=== PATIENT | female | born 1980 | race Caucasian/White ===

== ENCOUNTER 2017-10-15 11:44 | Observation (INO) | payer SELFPAY ==
[2017-10-15] MEDS ORDERED: Bupivacaine 0.25% 10 ML SDV ONE (12:00)
--- NOTE | 2017-10-15 12:00 | PCM.LDHP ---
L&D History of Present Illness - General Date of Service: 10/15/17 Admit Problem/Dx: Admission Diagnosis/Problem Admission Diagnosis/Problem Source of Information: Patient History Limitations: Reports: No Limitations - History of Present Illness Introduction:: 37 y/o SUM[place] 11/02/17 EGA 37w3d with H/O AMA, and two vessel cord, presented to [facility] for weekly BPP. No movement x12 hrs and USG revealed no heart rate, intrauterine demise. Sent to L&D for induction. Cervix closed, long, soft, posterior, floating presenting part confirmed by USG as cephalic.O positive GBS negative. Counseled on alternatives and patient and and I agree with induction. Improves with: Reports: None Worsens with: Reports: None Associated Symptoms: Reports: N - Related Data Allergies/Adverse Reactions: Allergies Allergy/AdvReac Type Severity Reaction Status Date / Time amoxicillin [Amoxicillin] Allergy Hives Verified 07/23/16 02:26 Penicillins Allergy Hives Verified 07/23/16 02:26 Home Medications: Home Meds Diclofenac Sodium [Voltaren] 75 mg PO BIDM #20 tab.cr 12/21/13 [Rx] Iron,Carbonyl/Vit C/Vit B12/Fa [Iron 100 Plus Tablet] 1 each PO 12/21/13 [ History] Ranitidine HCl [Zantac 75] 12/21/13 [History] traMADol [Ultram] 50 mg PO Q6H PRN #20 tab 12/21/13 [Rx] Acetaminophen [Tylenol] 650 mg PO Q6H PRN #0 tablet 07/28/16 [Rx] Benzocaine/Menthol [Dermoplast Pain Relief [place]] 1 spray TOP ASDIRECTED PRN #0 canister 07/28/16 [Rx] Ibuprofen [IJD: Ibuprofen] 200 - 600 mg PO Q6H PRN #0 tablet 07/28/16 [Rx] Witch Yolanda [Tucks] 1 pad TOP ASDIRECTED PRN #0 pad 07/28/16 [Rx] 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: - Past Surgical History Other Musculoskeletal Surgeries/Procedures:: "Had surgery on a few thumbs and ankles" Social & Family History - Family History Family Medical History: Noncontributory - Tobacco Use Smoking Status *Q: Current Every Day Smoker Years of Tobacco use: 20 Packs/Tins Daily: 1 Used Tobacco, but Quit: No - Caffeine Use Caffeine Use: Reports: Energy Drinks Other Caffeine Use: at least one daily - Alcohol Use Days Per Week of Alcohol Use: 0 - Recreational Drug Use Recreational Drug Use: No H&P Review of Systems - Review of Systems: Review Of Systems: See Below General: Reports: No Symptoms HEENT: Reports: No Symptoms Pulmonary: Reports: No Symptoms Cardiovascular: Reports: No Symptoms Gastrointestinal: Reports: No Symptoms Genitourinary: Reports: No Symptoms Musculoskeletal: Reports: No Symptoms Skin: Reports: No Symptoms Psychiatric: Reports: No Symptoms Neurological: Reports: No Symptoms Hematologic/Lymphatic: Reports: No Symptoms Immunologic: Reports: No Symptoms L&D Exam - Exam Exam: See Below - Vital Signs Weight: 104 lb 6.4 oz - OB Specific Fundal Height In cm: 37 Heart Tones per Min: 0 - Otto Score Otto Score Cervix Position: Posterior Otto Score Consistency: Soft Otto Score Effacement: 0-30% Otto Score Dilation: Closed Otto Score 's Station: -3 Otto Score Total: 2 - Exam General: Alert, Oriented HEENT: Conjunctiva Clear, Posterior Pharynx Clear, PERRLA Neck: Supple, Trachea Midline Lungs: Clear to Auscultation, Normal Respiratory Effort Cardiovascular: Regular Rate, Regular Rhythm GI/Abdominal Exam: Normal Bowel Sounds, Soft, Non-Tender Genitourinary: Normal external exam, Normal bimanual exam, Normal speculum exam Extremities: Normal Inspection, Normal Range of Motion, Non-Tender, No Pedal Edema, Normal Capillary Refill Skin: Warm, Dry, Intact Neurological: Reflexes Equal Bilateral Psychiatric: Alert, Normal Affect, Normal Mood - Problem List (1) 37 weeks gestation of SNOMED Code(s): 72027711 ICD Code: Z3A.37 - 37 WEEKS GESTATION OF Status: Acute Current Visit: Yes (2) demise SNOMED Code(s): 729769444 ICD Code: [id number] - Status: Acute Current Visit: Yes Problem List Initiated/Reviewed/Updated: No Assessment/Plan Comment:: Induction of labor for demise AMA 2 vessel cord IUFD Confirmed no heart activity at bedside by USG. Cytotec 25 mcg placed at cervix at 1213 hrs.
[2017-10-15] MEDS ORDERED: Misoprostol 25 MCG (1/4 of 100 MCG) Tab ONE (12:10)
[2017-10-15] MEDS ORDERED: Sodium Chloride 0.9% 10 ML Syringe FLUSH PRN (12:20)
[2017-10-15] MEDS ORDERED: Nalbuphine 20 MG/1 ML Amp IVPUSH PRN (12:20)
[2017-10-15] MEDS ORDERED: Ondansetron 4 MG/2 ML SDV IVPUSH PRN (12:20)
[2017-10-15] MEDS: Misoprostol 25 MCG (1/4 of 100 MCG) Tab VAG SCH ×3 (12:30→18:33)
[2017-10-15] MEDS ORDERED: Lactated Ringers 1,000 ML IV SCH (12:30)
--- NOTE | 2017-10-15 16:15 | PCM.SN ---
- Free Text/Narrative Note: Some increased cramping after second Cytotec, will plan 5 total unless condition of cervix changes and start pitocin at 0330 in AM.
[2017-10-15] MEDS ORDERED: diphenhydrAMINE 50 MG/ML SDV IVPUSH PRN (19:54)
[2017-10-15] MEDS ORDERED: ePHEDrine 50 MG/ML SDV IVPUSH PRN (19:54)
[2017-10-15] MEDS ORDERED: fentaNYL 100 MCG/2 ML SDV EPIDUR PRN (19:54)
[2017-10-15] MEDS ORDERED: fentaNYL/Bupivacaine in NS PF 2.5 MCG/ML-0.1% 50 ML Syringe EPIDUR SCH (20:00)
[2017-10-15] MEDS ORDERED: Bupivacaine/fentaNYL/NS 100 ML Bag EPIDUR SCH (20:30)
[2017-10-15 20:49] VITALS: BP 139/95
--- NOTE | 2017-10-15 20:49 | PCM.PREANE ---
Preanesthetic Assessment - Anesthesia/Transfusion/Family Hx Anesthesia History: Prior Anesthesia Reaction Type of Anesthesia Reaction: Excessive Nausea/Vomiting Family History of Anesthesia Reaction: No Transfusion History: No Prior Transfusion(s) - Review of Systems General: No Symptoms Pulmonary: No Symptoms Cardiovascular: No Symptoms Gastrointestinal: No Symptoms Neurological: No Symptoms Other: Reports: Depression, Anxiety - Physical Assessment Pulse: 80 O2 Sat by Pulse Oximetry: 97 Respiratory Rate: 20 Blood Pressure: 139/95 Vital Signs: Last Vital Signs Temp 98.4 F 10/15/17 12:20 Pulse 76 10/15/17 12:20 Resp 20 10/15/17 12:20 BP 104/64 10/15/17 12:20 Pulse Ox Height: 5 ft Weight: 47.355 kg ASA Class: 2 Mental Status: Alert & Oriented x3 Airway Class: Mallampati = 1 Dentition: Reports: Normal Dentition Thyro-Mental Finger Breadths: 3 Mouth Opening Finger Breadths: 3 ROM/Head Extension: Full Lungs: Clear to Auscultation, Normal Respiratory Effort Cardiovascular: Regular Rate, Regular Rhythm - Lab Values: Laboratory Last Values WBC 12.07 K/mm3 (3.98-10.04) H 10/15/17 00:40 RBC 5.10 M/mm3 (3.98-5.22) 10/15/17 00:40 Hgb 16.5 gm/L (11.2-15.7) H 10/15/17 00:40 Hct 48.0 % (34.1-44.9) H 10/15/17 00:40 MCV 94.1 fl (79.4-94.8) 10/15/17 00:40 MCH 32.4 pg (25.6-32.2) H 10/15/17 00:40 MCHC 34.4 g/dl (32.2-35.5) 10/15/17 00:40 RDW Std Deviation 45.8 fL (36.4-46.3) 10/15/17 00:40 Plt Count 172 K/mm3 (182-369) L 10/15/17 00:40 MPV 11.0 fl (9.4-12.3) 10/15/17 00:40 Blood Type O POSITIVE 10/15/17 12:40 Gel Antibody Screen Negative 10/15/17 12:40 - Allergies Allergies/Adverse Reactions: Allergies Allergy/AdvReac Type Severity Reaction Status Date / Time amoxicillin [Amoxicillin] Allergy Hives Verified 07/23/16 02:26 Penicillins Allergy Hives Verified 07/23/16 02:26 - Blood Blood Available: No - Acknowledgements Anesthesia Type Planned: Epidural Pt an Appropriate Candidate for the Planned Anesthesia: Yes Alternatives and Risks of Anesthesia Discussed w Pt/Guardian: Yes Pt/Guardian Understands and Agrees with Anesthesia Plan: Yes PreAnesthesia Questionnaire Cardiovascular History: Reports: None Gastrointestinal History: Reports: GERD 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 - Past Surgical History Other Musculoskeletal Surgeries/Procedures:: "Had surgery on a few thumbs and ankles" - SUBSTANCE USE Smoking Status *Q: Current Every Day Smoker Tobacco Use Within Last Twelve Months: Cigarettes Second Hand Smoke Exposure: Yes Days Per Week of Alcohol Use: 0 Recreational Drug Use History: No - HOME MEDS Home Medications: Home Meds Vit #108/Iron/FA [ One Tablet] 1 tab PO DAILY 10/15/17 [History ] - CURRENT (IN HOUSE) MEDS Current Meds: Current Medications Diphenhydramine HCl (Benadryl) 25 mg IVPUSH Q6H PRN PRN Reason: pruritis Ephedrine Sulfate (Ephedrine Sulfate) 5 mg IVPUSH ASDIRECTED PRN PRN Reason: Hypotension Fentanyl (Sublimaze) 100 mcg EPIDUR Q3H PRN PRN Reason: Pain Fentanyl/Bupivacaine HCl (Fentanyl/Bupivacaine/Ns 2.5 Mcg-0.1% 50 Ml) 50 ml EPIDUR ASDIRECTED FELA Fentanyl/Bupivacaine HCl (Fentanyl/Bupivacaine/Ns 2 Mcg-0.125% 100 Ml) 100 ml EPIDUR ASDIRECTED FELA Lactated Ringer's (Ringers, Lactated) 1,000 mls @ 100 mls/hr IV ASDIRECTED FELA Last Admin: 10/15/17 19:03 Dose: 100 mls/hr Oxytocin 20 unit/ Lactated (Ringer's) 1,002 mls @ 6.01 mls/hr IV TITRATE FELA; Protocol Oxytocin 20 unit/ Lactated (Ringer's) 1,002 mls @ 500 mls/hr IV ASDIRECTED FELA Misoprostol (Cytotec) 25 mcg PO Q3H [facility] Stop: 10/16/17 00:31 Nalbuphine HCl (Nubain) 10 mg IVPUSH Q2H PRN PRN Reason: Pain (moderate 4-6) Last Admin: 10/15/17 19:55 Dose: 10 mg Ondansetron HCl (Zofran) 4 mg IVPUSH Q4H PRN PRN Reason: Nausea/Vomiting Sodium Chloride (Saline Flush) 10 ml FLUSH ASDIRECTED PRN PRN Reason: Keep Vein Open Discontinued Medications Misoprostol (Cytotec) Confirm Administered Dose 25 mcg .ROUTE .[facility] Stop: 10/15/17 12:11 Last Admin: 10/15/17 12:14 Dose: 25 mcg Misoprostol (Cytotec) 25 mcg VAG Q3H [facility] Stop: 10/15/17 18:31 Last Admin: 10/15/17 18:33 Dose: 25 mcg
[2017-10-15] MEDS ORDERED: Misoprostol 200 MCG Tab PO SCH (21:30)
--- NOTE | 2017-10-15 23:06 | PCM.DEL ---
L & D Note - General Info Date of Service: 10/15/17 Mother's Due Date: 11/02/17 - Delivery Note Labor: Augmented by Oxytocin Cervical Ripening Method: Misoprostil Delivery Outcome: Stillbirth (223810/15/2017 LUDA IUFD (Stillbirth) 0 at delivery because of IUFD, no nuchal cord or cord entanglement weight 2250 gm/4#15 oz) Infant Delivery Method: Spontaneous Vaginal Delivery-Single Infant Delivery Mode: Spontaneous Presentation: Right Occiput Anterior (LUDA) Nuchal Cord: None Prep: Povidone-Iodine (Betadine Anesthesia Type: Epidural Episiotomy Type: None Laceration: 1st Degree Suture type: Chromic, Other (monocryl 3-0 x1) Suture size: 3-0 Placenta: Intact, Spontaneous (224110/15/2017 intact eccentric cord insertion, no evidence of abruption) Cord: 2 Vessels Estimated Blood Loss: 250 Provider: Obi Contreras Score 1 min: 0 (IUFD prior to labor) - Patient Data Vitals - Most Recent: Last Vital Signs Temp 98.4 F 10/15/17 12:20 Pulse 80 10/15/17 20:49 Resp 20 10/15/17 20:51 BP 139/95 H 10/15/17 20:49 Pulse Ox 97 10/15/17 20:49 Weight - Most Recent: 104 lb 6.4 oz I&O - Last 24 Hours: Intake & Output 10/15/17 10/15/17 10/15/17 06:59 14:59 22:59 Intake Total 0 Balance 0 Lab Results Last 24 Hours: Laboratory Results - last 24 hr 10/15/17 10/15/17 Range/Units 00:40 12:40 WBC 12.07 H (3.98-10.04) K/mm3 RBC 5.10 (3.98-5.22) M/mm3 Hgb 16.5 H (11.2-15.7) gm/L Hct 48.0 H (34.1-44.9) % MCV 94.1 (79.4-94.8) fl MCH 32.4 H (25.6-32.2) pg MCHC 34.4 (32.2-35.5) g/dl RDW Std Deviation 45.8 (36.4-46.3) fL Plt Count 172 L (182-369) K/mm3 MPV 11.0 (9.4-12.3) fl Blood Type O POSITIVE Gel Antibody Screen Negative Med Orders - Current: Current Medications Diphenhydramine HCl (Benadryl) 25 mg IVPUSH Q6H PRN PRN Reason: pruritis Ephedrine Sulfate (Ephedrine Sulfate) 5 mg IVPUSH ASDIRECTED PRN PRN Reason: Hypotension Fentanyl (Sublimaze) 100 mcg EPIDUR Q3H PRN PRN Reason: Pain Last Admin: 10/15/17 20:50 Dose: 100 mcg Fentanyl/Bupivacaine HCl (Fentanyl/Bupivacaine/Ns 2.5 Mcg-0.1% 50 Ml) 50 ml EPIDUR ASDIRECTED FELA Fentanyl/Bupivacaine HCl (Fentanyl/Bupivacaine/Ns 2 Mcg-0.125% 100 Ml) 100 ml EPIDUR ASDIRECTED FELA Last Admin: 10/15/17 20:50 Dose: 100 ml Lactated Ringer's (Ringers, Lactated) 1,000 mls @ 100 mls/hr IV ASDIRECTED FELA Last Admin: 10/15/17 19:03 Dose: 100 mls/hr Oxytocin 20 unit/ Lactated (Ringer's) 1,002 mls @ 6.01 mls/hr IV TITRATE FELA; Protocol Oxytocin 20 unit/ Lactated (Ringer's) 1,002 mls @ 500 mls/hr IV ASDIRECTED FELA Misoprostol (Cytotec) 25 mcg PO Q3H [facility] Stop: 10/16/17 00:31 Nalbuphine HCl (Nubain) 10 mg IVPUSH Q2H PRN PRN Reason: Pain (moderate 4-6) Last Admin: 10/15/17 19:55 Dose: 10 mg Ondansetron HCl (Zofran) 4 mg IVPUSH Q4H PRN PRN Reason: Nausea/Vomiting Sodium Chloride (Saline Flush) 10 ml FLUSH ASDIRECTED PRN PRN Reason: Keep Vein Open Discontinued Medications Misoprostol (Cytotec) Confirm Administered Dose 25 mcg .ROUTE .[facility] Stop: 10/15/17 12:11 Last Admin: 10/15/17 12:14 Dose: 25 mcg Misoprostol (Cytotec) 25 mcg VAG Q3H [facility] Stop: 10/15/17 18:31 Last Admin: 10/15/17 18:33 Dose: 25 mcg - Problem List & Annotations (1) 37 weeks gestation of SNOMED Code(s): 41948306 Code(s): Z3A.37 - 37 WEEKS GESTATION OF Status: Acute Current Visit: Yes (2) demise SNOMED Code(s): 233285295 Code(s): EDY1485 - Status: Acute Current Visit: Yes (3) Two vessel umbilical cord, delivered SNOMED Code(s): 499199905 Code(s): O69.89X0 - LABOR AND DELIVERY COMPLICATED BY OTH CORD COMP, UNSP Status: Acute Current Visit: Yes - Problem List Review Problem List Initiated/Reviewed/Updated: No - My Orders Last 24 Hours: My Active Orders 10/15/17 12:20 Patient Status [ADT] Routine Activity as Tolerated [RC] PFP Communication Order [RC] ASDIRECTED Notify Provider [RC] PFP Notify Provider [RC] PRN Vital Signs [RC] PER UNIT ROUTINE Nalbuphine [Nubain] 10 mg IVPUSH Q2H PRN Ondansetron [Zofran] 4 mg IVPUSH Q4H PRN Sodium Chloride 0.9% [Saline Flush] 10 ml FLUSH ASDIRECTED PRN Peripheral IV Insertion Adult [OM.PC] Routine Resuscitation Status Routine 10/15/17 12:21 Peripheral IV Care [RC] . DIRECTED 10/15/17 12:30 Lactated Ringers [Ringers, Lactated] 1,000 ml IV ASDIRECTED Oxytocin [Pitocin] 20 unit Lactated Ringers [Ringers, Lactated] 1,000 ml IV ASDIRECTED Oxytocin [Pitocin] 20 unit Lactated Ringers [Ringers, Lactated] 1,000 ml IV TITRATE 10/15/17 14:11 Communication Order [RC] ASDIRECTED 10/15/17 16:17 Communication Order [RC] ASDIRECTED 10/15/17 21:30 Misoprostol [Cytotec] 25 mcg PO Q3H 10/15/17 Lunch Regular Diet [DIET] - Plan Plan:: Induction of labor for demise AMA 2 vessel cord IUFD Confirmed no heart activity at bedside by USG. Cytotec 25 mcg placed at cervix at 1213 hrs.
[2017-10-16] MEDS ORDERED: Benzocaine/Menthol 20%-0.5% Spray 56 GM Canister TOP PRN (00:24)
[2017-10-16] MEDS ORDERED: Docusate Sodium 100 MG Cap PO PRN (00:24)
[2017-10-16] MEDS ORDERED: Acetaminophen 325 MG Tab PO PRN (00:24)
[2017-10-16] MEDS ORDERED: Ibuprofen 600 MG Tab PO PRN (00:24)
[2017-10-16] MEDS ORDERED: Witch Hazel Medicated Pads 100/Jar TOP PRN (00:24)
[2017-10-16] MEDS ORDERED: hydrOXYzine HCl 10 MG Tab PO SCH ×2 (01:12→21:00)
[2017-10-16] MEDS ORDERED: hydrOXYzine HCl 25 MG Tab PO SCH (01:30)
--- NOTE | 2017-10-16 07:40 | PCM48HPAN ---
Post Anesthesia Note - EVALUATION WITHIN 48HRS OF ANESTHETIC Vital Signs in Normal Range: Yes Patient Participated in Evaluation: No (from RN) Respiratory Function Stable: Yes Airway Patent: Yes Cardiovascular Function Stable: Yes Hydration Status Stable: Yes Pain Control Satisfactory: Yes Nausea and Vomiting Control Satisfactory: Yes Mental Status Recovered: Yes Pulse Rate: 80 Resp Rate: 20 Blood Pressure: 139/95 - COMMENTS/OBSERVATIONS Free Text/Narrative:: no anesthesia complications noted
--- NOTE | 2017-10-16 08:42 | PCM.DCSUM1 ---
Discharge Summary - Hospital Course Free Text/Narrative:: [facility] LIVE L/D Delivery Note Patient Name: NAE PALACIOS Date of : 76 Patient Status: Observation Attending Provider: Obi Contreras Date: 10/15/17 22:59 Initialization Date: 10/15/17 22:59 L & D Note - General Info Date of Service: 10/15/17 Mother's Due Date: 11/02/17 - Delivery Note Labor: Augmented by Oxytocin Cervical Ripening Method: Misoprostil Delivery Outcome: Stillbirth (223810/15/2017 LUDA IUFD (Stillbirth) 0 at delivery because of IUFD, no nuchal cord or cord entanglement weight 2250 gm/4#15 oz) Infant Delivery Method: Spontaneous Vaginal Delivery-Single Delivery Mode: Spontaneous Presentation: Right Occiput Anterior (LUDA) Nuchal Cord: None Prep: Povidone-Iodine (Betadine Anesthesia Type: Epidural Episiotomy Type: None Laceration: 1st Degree Suture type: Chromic, Other (monocryl 3-0 x1) Suture size: 3-0 Placenta: Intact, Spontaneous (224110/15/2017 intact eccentric cord insertion, no evidence of abruption) Cord: 2 Vessels Estimated Blood Loss: 250 Provider: Obi Contreras Score 1 min: 0 (IUFD prior to labor) - Patient Data Vitals - Most Recent: Last Vital Signs Temp 98.4 F 10/15/17 12:20 Pulse 80 10/15/17 20:49 Resp 20 10/15/17 20:51 BP 139/95 H 10/15/17 20:49 Pulse Ox 97 10/15/17 20:49 Weight - Most Recent: 104 lb 6.4 oz I&O - Last 24 Hours: Intake & Output 10/15/17 10/15/17 10/15/17 06:59 14:59 22:59 Intake Total 0 Balance 0 Lab Results Last 24 Hours: Laboratory Results - last 24 hr 10/15/17 10/15/17 Range/Units 00:40 12:40 WBC 12.07 H (3.98-10.04) K/mm3 RBC 5.10 (3.98-5.22) M/mm3 Hgb 16.5 H (11.2-15.7) gm/L Hct 48.0 H (34.1-44.9) % MCV 94.1 (79.4-94.8) fl MCH 32.4 H (25.6-32.2) pg MCHC 34.4 (32.2-35.5) g/dl RDW Std Deviation 45.8 (36.4-46.3) fL Plt Count 172 L (182-369) K/mm3 MPV 11.0 (9.4-12.3) fl Blood Type O POSITIVE Gel Antibody Screen Negative Med Orders - Current: Current Medications Diphenhydramine HCl (Benadryl) 25 mg IVPUSH Q6H PRN PRN Reason: pruritis Ephedrine Sulfate (Ephedrine Sulfate) 5 mg IVPUSH ASDIRECTED PRN PRN Reason: Hypotension Fentanyl (Sublimaze) 100 mcg EPIDUR Q3H PRN PRN Reason: Pain Last Admin: 10/15/17 20:50 Dose: 100 mcg Fentanyl/Bupivacaine HCl (Fentanyl/Bupivacaine/Ns 2.5 Mcg-0.1% 50 Ml) 50 ml EPIDUR ASDIRECTED FELA Fentanyl/Bupivacaine HCl (Fentanyl/Bupivacaine/Ns 2 Mcg-0.125% 100 Ml) 100 ml EPIDUR ASDIRECTED FELA Last Admin: 10/15/17 20:50 Dose: 100 ml Lactated Ringer's (Ringers, Lactated) 1,000 mls @ 100 mls/hr IV ASDIRECTED FELA Last Admin: 10/15/17 19:03 Dose: 100 mls/hr Oxytocin 20 unit/ Lactated (Ringer's) 1,002 mls @ 6.01 mls/hr IV TITRATE FELA; Protocol Oxytocin 20 unit/ Lactated (Ringer's) 1,002 mls @ 500 mls/hr IV ASDIRECTED ON LICENSE OF [facility] Misoprostol (Cytotec) 25 mcg PO Q3H FELA Stop: 10/16/17 00:31 Nalbuphine HCl (Nubain) 10 mg IVPUSH Q2H PRN PRN Reason: Pain (moderate 4-6) Last Admin: 10/15/17 19:55 Dose: 10 mg Ondansetron HCl (Zofran) 4 mg IVPUSH Q4H PRN PRN Reason: Nausea/Vomiting Sodium Chloride (Saline Flush) 10 ml FLUSH ASDIRECTED PRN PRN Reason: Keep Vein Open Discontinued Medications Misoprostol (Cytotec) Confirm Administered Dose 25 mcg .ROUTE .STK-MED ONE Stop: 10/15/17 12:11 Last Admin: 10/15/17 12:14 Dose: 25 mcg Misoprostol (Cytotec) 25 mcg VAG Q3H FELA Stop: 10/15/17 18:31 Last Admin: 10/15/17 18:33 Dose: 25 mcg - Problem List & Annotations (1) 37 weeks gestation of SNOMED Code(s): 68774866 Code(s): Z3A.37 - 37 WEEKS GESTATION OF Status: Acute Current Visit: Yes (2) demise SNOMED Code(s): 962778170 Code(s): UFM9626 - Status: Acute Current Visit: Yes (3) Two vessel umbilical cord, delivered SNOMED Code(s): 235879271 Code(s): O69.89X0 - LABOR AND DELIVERY COMPLICATED BY OTH CORD COMP, UNSP Status: Acute Current Visit: Yes - Problem List Review Problem List Initiated/Reviewed/Updated: No - My Orders Last 24 Hours: My Active Orders 10/15/17 12:20 Patient Status [ADT] Routine Activity as Tolerated [RC] PFP Communication Order [RC] ASDIRECTED Notify Provider [RC] PFP Notify Provider [RC] PRN Vital Signs [RC] PER UNIT ROUTINE Nalbuphine [Nubain] 10 mg IVPUSH Q2H PRN Ondansetron [Zofran] 4 mg IVPUSH Q4H PRN Sodium Chloride 0.9% [Saline Flush] 10 ml FLUSH ASDIRECTED PRN Peripheral IV Insertion Adult [OM.PC] Routine Resuscitation Status Routine 10/15/17 12:21 Peripheral IV Care [RC] . DIRECTED 10/15/17 12:30 Lactated Ringers [Ringers, Lactated] 1,000 ml IV ASDIRECTED Oxytocin [Pitocin] 20 unit Lactated Ringers [Ringers, Lactated] 1,000 ml IV ASDIRECTED Oxytocin [Pitocin] 20 unit Lactated Ringers [Ringers, Lactated] 1,000 ml IV TITRATE 10/15/17 14:11 Communication Order [RC] ASDIRECTED 10/15/17 16:17 Communication Order [RC] ASDIRECTED 10/15/17 21:30 Misoprostol [Cytotec] 25 mcg PO Q3H 10/15/17 Lunch Regular Diet [DIET] - Plan Plan:: Induction of labor for demise AMA 2 vessel cord IUFD Confirmed no heart activity at bedside by [facility]. Cytotec 25 mcg placed at cervix at 1213 hrs. HPI Initial Comments: [facility] LIVE L/D Delivery Note Patient Name: NAE PALACIOS Date of : 76 Patient Status: Observation Attending Provider: Obi Contreras Date: 10/15/17 22:59 Initialization Date: 10/15/17 22:59 L & D Note - General Info Date of Service: 10/15/17 Mother's Due Date: 11/02/17 - Delivery Note Labor: Augmented by Oxytocin Cervical Ripening Method: Misoprostil Delivery Outcome: Stillbirth (223810/15/2017 LUDA IUFD (Stillbirth) 0 at delivery because of IUFD, no nuchal cord or cord entanglement weight 2250 gm/4#15 oz) Delivery Method: Spontaneous Vaginal Delivery-Single Delivery Mode: Spontaneous Presentation: Right Occiput Anterior (LUDA) Nuchal Cord: None Prep: Povidone-Iodine (Betadine Anesthesia Type: Epidural Episiotomy Type: None Laceration: 1st Degree Suture type: Chromic, Other (monocryl 3-0 x1) Suture size: 3-0 Placenta: Intact, Spontaneous (224110/15/2017 intact eccentric cord insertion, no evidence of abruption) Cord: 2 Vessels Estimated Blood Loss: 250 Provider: Obi Contreras Score 1 min: 0 (IUFD prior to labor) - Patient Data Vitals - Most Recent: Last Vital Signs Temp 98.4 F 10/15/17 12:20 Pulse 80 10/15/17 20:49 Resp 20 10/15/17 20:51 BP 139/95 H 10/15/17 20:49 Pulse Ox 97 10/15/17 20:49 Weight - Most Recent: 104 lb 6.4 oz I&O - Last 24 Hours: Intake & Output 10/15/17 10/15/17 10/15/17 06:59 14:59 22:59 Intake Total 0 Balance 0 Lab Results Last 24 Hours: Laboratory Results - last 24 hr 10/15/17 10/15/17 Range/Units 00:40 12:40 WBC 12.07 H (3.98-10.04) K/mm3 RBC 5.10 (3.98-5.22) M/mm3 Hgb 16.5 H (11.2-15.7) gm/L Hct 48.0 H (34.1-44.9) % MCV 94.1 (79.4-94.8) fl MCH 32.4 H (25.6-32.2) pg MCHC 34.4 (32.2-35.5) g/dl RDW Std Deviation 45.8 (36.4-46.3) fL Plt Count 172 L (182-369) K/mm3 MPV 11.0 (9.4-12.3) fl Blood Type O POSITIVE Gel Antibody Screen Negative Med Orders - Current: Current Medications Diphenhydramine HCl (Benadryl) 25 mg IVPUSH Q6H PRN PRN Reason: pruritis Ephedrine Sulfate (Ephedrine Sulfate) 5 mg IVPUSH ASDIRECTED PRN PRN Reason: Hypotension Fentanyl (Sublimaze) 100 mcg EPIDUR Q3H PRN PRN Reason: Pain Last Admin: 10/15/17 20:50 Dose: 100 mcg Fentanyl/Bupivacaine HCl (Fentanyl/Bupivacaine/Ns 2.5 Mcg-0.1% 50 Ml) 50 ml EPIDUR ASDIRECTED FELA Fentanyl/Bupivacaine HCl (Fentanyl/Bupivacaine/Ns 2 Mcg-0.125% 100 Ml) 100 ml EPIDUR ASDIRECTED FELA Last Admin: 10/15/17 20:50 Dose: 100 ml Lactated Ringer's (Ringers, Lactated) 1,000 mls @ 100 mls/hr IV ASDIRECTED FELA Last Admin: 10/15/17 19:03 Dose: 100 mls/hr Oxytocin 20 unit/ Lactated (Ringer's) 1,002 mls @ 6.01 mls/hr IV TITRATE FELA; Protocol Oxytocin 20 unit/ Lactated (Ringer's) 1,002 mls @ 500 mls/hr IV ASDIRECTED FELA Misoprostol (Cytotec) 25 mcg PO Q3H ON LICENSE OF [facility] Stop: 10/16/17 00:31 Nalbuphine HCl (Nubain) 10 mg IVPUSH Q2H PRN PRN Reason: Pain (moderate 4-6) Last Admin: 10/15/17 19:55 Dose: 10 mg Ondansetron HCl (Zofran) 4 mg IVPUSH Q4H PRN PRN Reason: Nausea/Vomiting Sodium Chloride (Saline Flush) 10 ml FLUSH ASDIRECTED PRN PRN Reason: Keep Vein Open Discontinued Medications Misoprostol (Cytotec) Confirm Administered Dose 25 mcg .ROUTE .STK-MED ONE Stop: 10/15/17 12:11 Last Admin: 10/15/17 12:14 Dose: 25 mcg Misoprostol (Cytotec) 25 mcg VAG Q3H ON LICENSE OF [facility] Stop: 10/15/17 18:31 Last Admin: 10/15/17 18:33 Dose: 25 mcg - Problem List & Annotations (1) 37 weeks gestation of SNOMED Code(s): 47704362 Code(s): Z3A.37 - 37 WEEKS GESTATION OF Status: Acute Current Visit: Yes (2) demise SNOMED Code(s): 867291264 Code(s): JEC9258 - Status: Acute Current Visit: Yes (3) Two vessel umbilical cord, delivered SNOMED Code(s): 573291436 Code(s): O69.89X0 - LABOR AND DELIVERY COMPLICATED BY OTH CORD COMP, UNSP Status: Acute Current Visit: Yes - Problem List Review Problem List Initiated/Reviewed/Updated: No - My Orders Last 24 Hours: My Active Orders 10/15/17 12:20 Patient Status [ADT] Routine Activity as Tolerated [RC] PFP Communication Order [RC] ASDIRECTED Notify Provider [RC] PFP Notify Provider [RC] PRN Vital Signs [RC] PER UNIT ROUTINE Nalbuphine [Nubain] 10 mg IVPUSH Q2H PRN Ondansetron [Zofran] 4 mg IVPUSH Q4H PRN Sodium Chloride 0.9% [Saline Flush] 10 ml FLUSH ASDIRECTED PRN Peripheral IV Insertion Adult [OM.PC] Routine Resuscitation Status Routine 10/15/17 12:21 Peripheral IV Care [RC] . DIRECTED 10/15/17 12:30 Lactated Ringers [Ringers, Lactated] 1,000 ml IV ASDIRECTED Oxytocin [Pitocin] 20 unit Lactated Ringers [Ringers, Lactated] 1,000 ml IV ASDIRECTED Oxytocin [Pitocin] 20 unit Lactated Ringers [Ringers, Lactated] 1,000 ml IV TITRATE 10/15/17 14:11 Communication Order [RC] ASDIRECTED 10/15/17 16:17 Communication Order [RC] ASDIRECTED 10/15/17 21:30 Misoprostol [Cytotec] 25 mcg PO Q3H 10/15/17 Lunch Regular Diet [DIET] - Plan Plan:: Induction of labor for demise AMA 2 vessel cord IUFD Confirmed no heart activity at bedside by [facility]. Cytotec 25 mcg placed at cervix at 1213 hrs. Brief History: [facility] LIVE . L/D Delivery Note. [facility]: [id number] Date of : Patient Status: Observation. Attending Provider: Obi Contreras Number: [id number]. Date: 10/15/17 22:59Initialization Date: 10/15/17 22:59. L & D Note. - General Info. Date of Service: 10/15/17. Mother's Due Date: 11/02/17. - Delivery Note. Labor: Augmented by Oxytocin. Cervical Ripening Method: Misoprostil. Delivery Outcome: Stillbirth (223810/15/2017 LUDA IUFD (Stillbirth) 0 at delivery because of IUFD, no nuchal cord or cord entanglement weight 2250 gm/4#15 oz). Infant Delivery Method: Spontaneous Vaginal Delivery-Single. Infant Delivery Mode: Spontaneous. Presentation : Right Occiput Anterior (LUDA). Nuchal Cord: None. Prep: Povidone-Iodine ( Betadine. Anesthesia Type: Epidural. Episiotomy Type: None. Laceration: 1st Degree. Suture type: Chromic, Other (monocryl 3-0 x1). Suture size: 3-0. Placenta: Intact, Spontaneous (2241dy 10/15/2017 intact eccentric cord insertion, no evidence of abruption). Cord: 2 Vessels. Estimated Blood Loss: 250. Provider: Obi Contreras. Score 1 min: 0 (IUFD prior to labor). - Patient Data. Vitals - Most Recent: Last Vital Signs. Temp 98.4 F 10/15/17 12:20. Pulse 80 10/15/17 20:49. Resp 20 10/15/17 20:51. BP 139/95 H 10/15/17 20:49. Pulse Ox 97 10/15/17 20:49. Weight - Most Recent : 104 lb 6.4 oz. I&O - Last 24 Hours: Intake & Output. 10/16/1803. 06:5914:5922:59. Intake Total0. Balance0. Lab Results Last 24 Hours: Laboratory Results - last 24 hr. 10/16/1803/23/18Range/Units. 00:4012:40. WBC 12.07 H (3.98-10.04) K/mm3. RBC 5.10 (3.98-5.22) M/mm3. Hgb 16.5 H (11.2 -15.7) gm/L. Hct 48.0 H (34.1-44.9) %. MCV 94.1 (79.4-94.8) fl. MCH 32.4 H (25.6-32.2) pg. MCHC 34.4 (32.2-35.5) g/dl. RDW Std Deviation 45.8 (36.4- 46.3) fL. Plt Count 172 L (182-369) K/mm3. MPV 11.0 (9.4-12.3) fl. Blood Type O POSITIVE. Gel Antibody Screen Negative. Med Orders - Current: Current Medications. Diphenhydramine HCl (Benadryl) 25 mg IVPUSH Q6H PRN. PRN Reason : pruritis. Ephedrine Sulfate (Ephedrine Sulfate) 5 mg IVPUSH ASDIRECTED PRN. PRN Reason: Hypotension. Fentanyl (Sublimaze) 100 mcg EPIDUR Q3H PRN. PRN Reason: Pain. Last Admin: 10/15/17 20:50 Dose: 100 mcg. Fentanyl/Bupivacaine HCl (Fentanyl/Bupivacaine/Ns 2.5 Mcg-0.1% 50 Ml) 50 ml EPIDUR ASDIRECTED FELA. Fentanyl/Bupivacaine HCl (Fentanyl/Bupivacaine/Ns 2 Mcg-0.125% 100 Ml) 100 ml EPIDUR ASDIRECTED FELA. Last Admin: 10/15/17 20:50 Dose: 100 ml. Lactated Ringer's (Ringers, Lactated) 1,000 mls @ 100 mls/hr IV ASDIRECTED FELA. Last Admin: 10/15/17 19:03 Dose: 100 mls/hr. Oxytocin 20 unit/ Lactated (Ringer's) 1,002 mls @ 6.01 mls/hr IV TITRATE FELA; Protocol. Oxytocin 20 unit/ Lactated (Ringer's) 1,002 mls @ 500 mls/hr IV ASDIRECTED FELA. Misoprostol (Cytotec) 25 mcg PO Q3H FELA. Stop: 10/16/17 00:31. Nalbuphine HCl (Nubain) 10 mg IVPUSH Q2H PRN. PRN Reason: Pain (moderate 4-6). Last Admin: 10/15/17 19:55 Dose: 10 mg. Ondansetron HCl (Zofran) 4 mg IVPUSH Q4H PRN. PRN Reason: Nausea/Vomiting. Sodium Chloride (Saline Flush) 10 ml FLUSH ASDIRECTED PRN. PRN Reason: Keep Vein Open. Discontinued Medications. Misoprostol (Cytotec) Confirm Administered Dose 25 mcg .ROUTE .STK-MED ONE. Stop: 10/15/17 12:11. Last Admin: 10/15/17 12:14 Dose: 25 mcg. Misoprostol (Cytotec) 25 mcg VAG Q3H FELA. Stop: 10/15/17 18:31. Last Admin: 10/15/17 18:33 Dose: 25 mcg. - Problem List & Annotations. (1) 37 weeks gestation of . SNOMED Code(s ): 50298015. Code(s): Z3A.37 - 37 WEEKS GESTATION OF Status: Acute Current Visit: Yes. (2) demise. SNOMED Code(s): 380325423. Code(s): QQR7304 - Status: Acute Current Visit: Yes. (3) Two vessel umbilical cord , delivered. SNOMED Code(s): 177871477. Code(s): O69.89X0 - LABOR AND DELIVERY COMPLICATED BY OTH CORD COMP, UNSP Status: Acute Current Visit: Yes. - Problem List Review. Problem List Initiated/Reviewed/Updated: No. - My Orders. Last 24 Hours: My Active Orders. 10/15/17 12:20. Patient Status [ ADT] Routine. Activity as Tolerated [RC] PFP. Communication Order [RC] ASDIRECTED. Notify Provider [RC] PFP. Notify Provider [RC] PRN. Vital Signs [ RC] PER UNIT ROUTINE. Nalbuphine [Nubain] 10 mg IVPUSH Q2H PRN. Ondansetron [Zofran] 4 mg IVPUSH Q4H PRN. Sodium Chloride 0.9% [Saline Flush] 10 ml FLUSH ASDIRECTED PRN. Peripheral IV Insertion Adult [OM.PC] Routine. Resuscitation Status Routine. 10/15/17 12:21. Peripheral IV Care [RC] . DIRECTED. 10/15/17 12:30. Lactated Ringers [Ringers, Lactated] 1,000 ml IV ASDIRECTED. Oxytocin [Pitocin] 20 unit Lactated Ringers [Ringers, Lactated] 1 ,000 ml IV ASDIRECTED. Oxytocin [Pitocin] 20 unit Lactated Ringers [Ringers, Lactated] 1,000 ml IV TITRATE. 10/15/17 14:11. Communication Order [RC] ASDIRECTED. 10/15/17 16:17. Communication Order [RC] ASDIRECTED. 10/15/17 21: 30. Misoprostol [Cytotec] 25 mcg PO Q3H. 10/15/17 Lunch. Regular Diet [DIET ]. - Plan. Plan:: Induction of labor for demise. AMA. 2 vessel cord. IUFD. Confirmed no heart activity at bedside by [facility]. Cytotec 25 mcg placed at cervix at 1213 hrs. - Discharge Data Discharge Date: 10/16/17 Discharge Disposition: Home, Self-Care 01 Condition: Good - Discharge Diagnosis/Problem(s) (1) 37 weeks gestation of SNOMED Code(s): 40166004 ICD Code: Z3A.37 - 37 WEEKS GESTATION OF Status: Acute (2) demise SNOMED Code(s): 077309148 ICD Code: QME4684 - Status: Acute (3) Two vessel umbilical cord, delivered SNOMED Code(s): 168753759 ICD Code: O69.89X0 - LABOR AND DELIVERY COMPLICATED BY OTH CORD COMP, UNSP Status: Acute (4) Advanced maternal age (AMA) in SNOMED Code(s): 790767606 ICD Code: GFO2380 - Status: Acute (5) First degree laceration of perineum during delivery, SNOMED Code(s): 576814922 ICD Code: O70.0 - FIRST DEGREE PERINEAL LACERATION DURING DELIVERY Status: Acute - Patient Summary/Data Complications: none Consults: none Hospital Course: uneventful - Patient Instructions Diet: Usual Diet as Tolerated Activity: No Strenuous Activities Driving: Do Not Drive (x48 hrs) Showering/Bathing: May Shower Notify Provider of: Fever, Increased Pain, Swelling and Redness, Drainage, Nausea and/or Vomiting - Discharge Plan Prescriptions/Med Rec: Ibuprofen [Motrin] 600 mg PO Q6H PRN #50 tab PRN Reason: Pain Home Medications: Home Meds Vit #108/Iron/FA [ One Tablet] 1 tab PO DAILY 10/15/17 [History ] Ibuprofen [Motrin] 600 mg PO Q6H PRN #50 tab 10/16/17 [Rx] Patient Handouts: Vaginal Delivery, Loss, Care After Referrals: Obi Contreras MD [Primary Care Provider] - - Discharge Summary/Plan Comment DC Time >30 min.: No - Patient Data Vitals - Most Recent: Last Vital Signs Temp 98.4 F 10/15/17 12:20 Pulse 80 10/16/17 07:40 Resp 20 10/16/17 07:40 BP 139/95 H 10/16/17 07:40 Pulse Ox 97 10/15/17 20:49 Weight - Most Recent: 104 lb 6.4 oz I&O - Last 24 hours: Intake & Output 10/15/17 10/16/17 10/16/17 22:59 06:59 14:59 Intake Total 0 Balance 0 Lab Results - Last 24 hrs: Laboratory Results - last 24 hr 10/15/17 10/15/17 Range/Units 00:40 12:40 WBC 12.07 H (3.98-10.04) K/mm3 RBC 5.10 (3.98-5.22) M/mm3 Hgb 16.5 H (11.2-15.7) gm/L Hct 48.0 H (34.1-44.9) % MCV 94.1 (79.4-94.8) fl MCH 32.4 H (25.6-32.2) pg MCHC 34.4 (32.2-35.5) g/dl RDW Std Deviation 45.8 (36.4-46.3) fL Plt Count 172 L (182-369) K/mm3 MPV 11.0 (9.4-12.3) fl Blood Type O POSITIVE Gel Antibody Screen Negative Med Orders - Current: Current Medications Discontinued Medications Acetaminophen (Tylenol) 650 mg PO Q4H PRN PRN Reason: mild pain or fever Benzocaine/Menthol (Dermoplast Pain [facility] [place]) 0 gm TOP ASDIRECTED PRN PRN Reason: Perineal Comfort Measure Diphenhydramine HCl (Benadryl) 25 mg IVPUSH Q6H PRN PRN Reason: pruritis Docusate Sodium (Colace) 100 mg PO BID PRN PRN Reason: Constipation Ephedrine Sulfate (Ephedrine Sulfate) 5 mg IVPUSH ASDIRECTED PRN PRN Reason: Hypotension Fentanyl (Sublimaze) 100 mcg EPIDUR Q3H PRN PRN Reason: Pain Last Admin: 10/15/17 20:50 Dose: 100 mcg Fentanyl/Bupivacaine HCl (Fentanyl/Bupivacaine/Ns 2.5 Mcg-0.1% 50 Ml) 50 ml EPIDUR ASDIRECTED FELA Fentanyl/Bupivacaine HCl (Fentanyl/Bupivacaine/Ns 2 Mcg-0.125% 100 Ml) 100 ml EPIDUR ASDIRECTED FELA Last Admin: 10/15/17 20:50 Dose: 100 ml Hydroxyzine HCl (Atarax) 10 mg PO BEDTIME FELA Hydroxyzine HCl (Atarax) 10 mg PO BEDTIME FELA Hydroxyzine HCl (Atarax) 25 mg PO BEDTIME FELA Last Admin: 10/16/17 01:31 Dose: 25 mg Lactated Ringer's (Ringers, Lactated) 1,000 mls @ 100 mls/hr IV ASDIRECTED FELA Last Admin: 10/15/17 19:03 Dose: 100 mls/hr Oxytocin 20 unit/ Lactated (Ringer's) 1,002 mls @ 6.01 mls/hr IV TITRATE FELA; Protocol Oxytocin 20 unit/ Lactated (Ringer's) 1,002 mls @ 500 mls/hr IV ASDIRECTED FELA Ibuprofen (Motrin) 600 mg PO Q4H PRN PRN Reason: Mild pain or fever Misoprostol (Cytotec) Confirm Administered Dose 25 mcg .ROUTE .STK-MED ONE Stop: 10/15/17 12:11 Last Admin: 10/15/17 12:14 Dose: 25 mcg Misoprostol (Cytotec) 25 mcg VAG Q3H ON LICENSE OF [facility] Stop: 10/15/17 18:31 Last Admin: 10/15/17 18:33 Dose: 25 mcg Misoprostol (Cytotec) 25 mcg PO Q3H ON LICENSE OF [facility] Stop: 10/16/17 00:31 Nalbuphine HCl (Nubain) 10 mg IVPUSH Q2H PRN PRN Reason: Pain (moderate 4-6) Last Admin: 10/15/17 19:55 Dose: 10 mg Ondansetron HCl (Zofran) 4 mg IVPUSH Q4H PRN PRN Reason: Nausea/Vomiting Sodium Chloride (Saline Flush) 10 ml FLUSH ASDIRECTED PRN PRN Reason: Keep Vein Open Witch Yolanda (Tucks) 1 pad TOP ASDIRECTED PRN PRN Reason: Hemorrhoid pain
--- NOTE | 2017-10-16 09:55 | PCM.DEL ---
L & D Note - General Info Date of Service: 10/16/17 Mother's Due Date: 11/02/17 - Delivery Note Labor: Augmented by Oxytocin Cervical Ripening Method: Misoprostil Delivery Outcome: Stillbirth (223810/15/2017 LUDA IUFD (Stillbirth) 0 at delivery because of IUFD, no nuchal cord or cord entanglement weight 2250 gm/4#15 oz) Infant Delivery Method: Spontaneous Vaginal Delivery-Single Infant Delivery Mode: Spontaneous Presentation: Right Occiput Anterior (LUDA) Nuchal Cord: None Prep: Povidone-Iodine (Betadine Anesthesia Type: Epidural Episiotomy Type: None Laceration: 1st Degree Suture type: Chromic, Other (monocryl 3-0 x1) Suture size: 3-0 Placenta: Intact, Spontaneous (224110/15/2017 intact eccentric cord insertion, no evidence of abruption) Cord: 2 Vessels Estimated Blood Loss: 250 Provider: Obi Contreras - Patient Data Vitals - Most Recent: Last Vital Signs Temp 98.4 F 10/15/17 12:20 Pulse 80 10/16/17 07:40 Resp 20 10/16/17 07:40 BP 139/95 H 10/16/17 07:40 Pulse Ox 97 10/15/17 20:49 Weight - Most Recent: 104 lb 6.4 oz I&O - Last 24 Hours: Intake & Output 10/15/17 10/16/17 10/16/17 22:59 06:59 14:59 Intake Total 0 Balance 0 Lab Results Last 24 Hours: Laboratory Results - last 24 hr 10/15/17 10/15/17 Range/Units 00:40 12:40 WBC 12.07 H (3.98-10.04) K/mm3 RBC 5.10 (3.98-5.22) M/mm3 Hgb 16.5 H (11.2-15.7) gm/L Hct 48.0 H (34.1-44.9) % MCV 94.1 (79.4-94.8) fl MCH 32.4 H (25.6-32.2) pg MCHC 34.4 (32.2-35.5) g/dl RDW Std Deviation 45.8 (36.4-46.3) fL Plt Count 172 L (182-369) K/mm3 MPV 11.0 (9.4-12.3) fl Blood Type O POSITIVE Gel Antibody Screen Negative Med Orders - Current: Current Medications Discontinued Medications Acetaminophen (Tylenol) 650 mg PO Q4H PRN PRN Reason: mild pain or fever Benzocaine/Menthol (Dermoplast Pain Relief Edwards) 0 gm TOP ASDIRECTED PRN PRN Reason: Perineal Comfort Measure Diphenhydramine HCl (Benadryl) 25 mg IVPUSH Q6H PRN PRN Reason: pruritis Docusate Sodium (Colace) 100 mg PO BID PRN PRN Reason: Constipation Ephedrine Sulfate (Ephedrine Sulfate) 5 mg IVPUSH ASDIRECTED PRN PRN Reason: Hypotension Fentanyl (Sublimaze) 100 mcg EPIDUR Q3H PRN PRN Reason: Pain Last Admin: 10/15/17 20:50 Dose: 100 mcg Fentanyl/Bupivacaine HCl (Fentanyl/Bupivacaine/Ns 2.5 Mcg-0.1% 50 Ml) 50 ml EPIDUR ASDIRECTED FELA Fentanyl/Bupivacaine HCl (Fentanyl/Bupivacaine/Ns 2 Mcg-0.125% 100 Ml) 100 ml EPIDUR ASDIRECTED FELA Last Admin: 10/15/17 20:50 Dose: 100 ml Hydroxyzine HCl (Atarax) 10 mg PO BEDTIME FELA Hydroxyzine HCl (Atarax) 10 mg PO BEDTIME FELA Hydroxyzine HCl (Atarax) 25 mg PO BEDTIME FELA Last Admin: 10/16/17 01:31 Dose: 25 mg Lactated Ringer's (Ringers, Lactated) 1,000 mls @ 100 mls/hr IV ASDIRECTED FELA Last Admin: 10/15/17 19:03 Dose: 100 mls/hr Oxytocin 20 unit/ Lactated (Ringer's) 1,002 mls @ 6.01 mls/hr IV TITRATE FELA; Protocol Oxytocin 20 unit/ Lactated (Ringer's) 1,002 mls @ 500 mls/hr IV ASDIRECTED FELA Ibuprofen (Motrin) 600 mg PO Q4H PRN PRN Reason: Mild pain or fever Misoprostol (Cytotec) Confirm Administered Dose 25 mcg .ROUTE .STK-MED ONE Stop: 10/15/17 12:11 Last Admin: 10/15/17 12:14 Dose: 25 mcg Misoprostol (Cytotec) 25 mcg VAG Q3H [facility] Stop: 10/15/17 18:31 Last Admin: 10/15/17 18:33 Dose: 25 mcg Misoprostol (Cytotec) 25 mcg PO Q3H [facility] Stop: 10/16/17 00:31 Nalbuphine HCl (Nubain) 10 mg IVPUSH Q2H PRN PRN Reason: Pain (moderate 4-6) Last Admin: 10/15/17 19:55 Dose: 10 mg Ondansetron HCl (Zofran) 4 mg IVPUSH Q4H PRN PRN Reason: Nausea/Vomiting Sodium Chloride (Saline Flush) 10 ml FLUSH ASDIRECTED PRN PRN Reason: Keep Vein Open Witch Yolanda (Tucks) 1 pad TOP ASDIRECTED PRN PRN Reason: Hemorrhoid pain - Problem List & Annotations (1) 37 weeks gestation of SNOMED Code(s): 76292208 Code(s): Z3A.37 - 37 WEEKS GESTATION OF Status: Acute (2) demise SNOMED Code(s): 098583680 Code(s): [id number] - Status: Acute (3) Two vessel umbilical cord, delivered SNOMED Code(s): 146867112 Code(s): O69.89X0 - LABOR AND DELIVERY COMPLICATED BY OTH CORD COMP, UNSP Status: Acute (4) Advanced maternal age (AMA) in SNOMED Code(s): 121597081 Code(s): MLP7010 - Status: Acute (5) First degree laceration of perineum during delivery, SNOMED Code(s): 064217781 Code(s): O70.0 - FIRST DEGREE PERINEAL LACERATION DURING DELIVERY Status: Acute - Problem List Review Problem List Initiated/Reviewed/Updated: No - My Orders Last 24 Hours: My Active Orders 10/15/17 16:17 Communication Order [RC] ASDIRECTED 10/15/17 23:08 Resuscitation Status Routine 10/16/17 00:24 Activity as Tolerated [RC] PER UNIT ROUTINE Vital Signs [RC] ASDIRECTED Assess Lochia [WOMSER] Per Unit Routine Assess Uterine Involution [WOMSER] Per Unit Routine Breast Pump [WOMSER] Per Unit Routine Heat Therapy [OM.PC] PRN Medication Administration Instruction [OM.PC] Routine Perineal Care [OM.PC] Per Unit Routine Peripheral IV Discontinue [OM.PC] Routine Sitz Bath [OM.PC] Per Unit Routine 10/16/17 01:20 Ready for Discharge [RC] PER UNIT ROUTINE - Plan Plan:: Induction of labor for demise AMA 2 vessel cord IUFD Confirmed no heart activity at bedside by [facility]. Cytotec 25 mcg placed at cervix at 1213 hrs.
--- NOTE | 2017-10-16 09:57 | PCM.DCSUM1 ---
Discharge Summary - Hospital Course Free Text/Narrative:: [facility] LIVE L/D Delivery Note Patient Name: NAE PALACIOS Date of : 76 Patient Status: Observation Attending Provider: Obi Contreras Date: 10/15/17 22:59 Initialization Date: 10/15/17 22:59 L & D Note - General Info Date of Service: 10/15/17 Mother's Due Date: 11/02/17 - Delivery Note Labor: Augmented by Oxytocin Cervical Ripening Method: Misoprostil Delivery Outcome: Stillbirth (223810/15/2017 LUDA IUFD (Stillbirth) 0 at delivery because of IUFD, no nuchal cord or cord entanglement weight 2250 gm/4#15 oz) Infant Delivery Method: Spontaneous Vaginal Delivery-Single Delivery Mode: Spontaneous Presentation: Right Occiput Anterior (LUDA) Nuchal Cord: None Prep: Povidone-Iodine (Betadine Anesthesia Type: Epidural Episiotomy Type: None Laceration: 1st Degree Suture type: Chromic, Other (monocryl 3-0 x1) Suture size: 3-0 Placenta: Intact, Spontaneous (224110/15/2017 intact eccentric cord insertion, no evidence of abruption) Cord: 2 Vessels Estimated Blood Loss: 250 Provider: Obi Contreras Score 1 min: 0 (IUFD prior to labor) - Patient Data Vitals - Most Recent: Last Vital Signs Temp 98.4 F 10/15/17 12:20 Pulse 80 10/15/17 20:49 Resp 20 10/15/17 20:51 BP 139/95 H 10/15/17 20:49 Pulse Ox 97 10/15/17 20:49 Weight - Most Recent: 104 lb 6.4 oz I&O - Last 24 Hours: Intake & Output 10/15/17 10/15/17 10/15/17 06:59 14:59 22:59 Intake Total 0 Balance 0 Lab Results Last 24 Hours: Laboratory Results - last 24 hr 10/15/17 10/15/17 Range/Units 00:40 12:40 WBC 12.07 H (3.98-10.04) K/mm3 RBC 5.10 (3.98-5.22) M/mm3 Hgb 16.5 H (11.2-15.7) gm/L Hct 48.0 H (34.1-44.9) % MCV 94.1 (79.4-94.8) fl MCH 32.4 H (25.6-32.2) pg MCHC 34.4 (32.2-35.5) g/dl RDW Std Deviation 45.8 (36.4-46.3) fL Plt Count 172 L (182-369) K/mm3 MPV 11.0 (9.4-12.3) fl Blood Type O POSITIVE Gel Antibody Screen Negative Med Orders - Current: Current Medications Diphenhydramine HCl (Benadryl) 25 mg IVPUSH Q6H PRN PRN Reason: pruritis Ephedrine Sulfate (Ephedrine Sulfate) 5 mg IVPUSH ASDIRECTED PRN PRN Reason: Hypotension Fentanyl (Sublimaze) 100 mcg EPIDUR Q3H PRN PRN Reason: Pain Last Admin: 10/15/17 20:50 Dose: 100 mcg Fentanyl/Bupivacaine HCl (Fentanyl/Bupivacaine/Ns 2.5 Mcg-0.1% 50 Ml) 50 ml EPIDUR ASDIRECTED FELA Fentanyl/Bupivacaine HCl (Fentanyl/Bupivacaine/Ns 2 Mcg-0.125% 100 Ml) 100 ml EPIDUR ASDIRECTED FELA Last Admin: 10/15/17 20:50 Dose: 100 ml Lactated Ringer's (Ringers, Lactated) 1,000 mls @ 100 mls/hr IV ASDIRECTED FELA Last Admin: 10/15/17 19:03 Dose: 100 mls/hr Oxytocin 20 unit/ Lactated (Ringer's) 1,002 mls @ 6.01 mls/hr IV TITRATE FELA; Protocol Oxytocin 20 unit/ Lactated (Ringer's) 1,002 mls @ 500 mls/hr IV ASDIRECTED [facility] Misoprostol (Cytotec) 25 mcg PO Q3H FELA Stop: 10/16/17 00:31 Nalbuphine HCl (Nubain) 10 mg IVPUSH Q2H PRN PRN Reason: Pain (moderate 4-6) Last Admin: 10/15/17 19:55 Dose: 10 mg Ondansetron HCl (Zofran) 4 mg IVPUSH Q4H PRN PRN Reason: Nausea/Vomiting Sodium Chloride (Saline Flush) 10 ml FLUSH ASDIRECTED PRN PRN Reason: Keep Vein Open Discontinued Medications Misoprostol (Cytotec) Confirm Administered Dose 25 mcg .ROUTE .STK-MED ONE Stop: 10/15/17 12:11 Last Admin: 10/15/17 12:14 Dose: 25 mcg Misoprostol (Cytotec) 25 mcg VAG Q3H FELA Stop: 10/15/17 18:31 Last Admin: 10/15/17 18:33 Dose: 25 mcg - Problem List & Annotations (1) 37 weeks gestation of SNOMED Code(s): 82146504 Code(s): Z3A.37 - 37 WEEKS GESTATION OF Status: Acute Current Visit: Yes (2) demise SNOMED Code(s): 681311422 Code(s): BLG8933 - Status: Acute Current Visit: Yes (3) Two vessel umbilical cord, delivered SNOMED Code(s): 592495352 Code(s): O69.89X0 - LABOR AND DELIVERY COMPLICATED BY OTH CORD COMP, UNSP Status: Acute Current Visit: Yes - Problem List Review Problem List Initiated/Reviewed/Updated: No - My Orders Last 24 Hours: My Active Orders 10/15/17 12:20 Patient Status [ADT] Routine Activity as Tolerated [RC] PFP Communication Order [RC] ASDIRECTED Notify Provider [RC] PFP Notify Provider [RC] PRN Vital Signs [RC] PER UNIT ROUTINE Nalbuphine [Nubain] 10 mg IVPUSH Q2H PRN Ondansetron [Zofran] 4 mg IVPUSH Q4H PRN Sodium Chloride 0.9% [Saline Flush] 10 ml FLUSH ASDIRECTED PRN Peripheral IV Insertion Adult [OM.PC] Routine Resuscitation Status Routine 10/15/17 12:21 Peripheral IV Care [RC] . DIRECTED 10/15/17 12:30 Lactated Ringers [Ringers, Lactated] 1,000 ml IV ASDIRECTED Oxytocin [Pitocin] 20 unit Lactated Ringers [Ringers, Lactated] 1,000 ml IV ASDIRECTED Oxytocin [Pitocin] 20 unit Lactated Ringers [Ringers, Lactated] 1,000 ml IV TITRATE 10/15/17 14:11 Communication Order [RC] ASDIRECTED 10/15/17 16:17 Communication Order [RC] ASDIRECTED 10/15/17 21:30 Misoprostol [Cytotec] 25 mcg PO Q3H 10/15/17 Lunch Regular Diet [DIET] - Plan Plan:: Induction of labor for demise AMA 2 vessel cord IUFD Confirmed no heart activity at bedside by [facility]. Cytotec 25 mcg placed at cervix at 1213 hrs. HPI Initial Comments: [facility] LIVE L/D Delivery Note Patient Name: NAE PALACIOS Date of : 76 Patient Status: Observation Attending Provider: Obi Contreras Date: 10/15/17 22:59 Initialization Date: 10/15/17 22:59 L & D Note - General Info Date of Service: 10/15/17 Mother's Due Date: 11/02/17 - Delivery Note Labor: Augmented by Oxytocin Cervical Ripening Method: Misoprostil Delivery Outcome: Stillbirth (223810/15/2017 LUDA IUFD (Stillbirth) 0 at delivery because of IUFD, no nuchal cord or cord entanglement weight 2250 gm/4#15 oz) Delivery Method: Spontaneous Vaginal Delivery-Single Delivery Mode: Spontaneous Presentation: Right Occiput Anterior (LUDA) Nuchal Cord: None Prep: Povidone-Iodine (Betadine Anesthesia Type: Epidural Episiotomy Type: None Laceration: 1st Degree Suture type: Chromic, Other (monocryl 3-0 x1) Suture size: 3-0 Placenta: Intact, Spontaneous (224110/15/2017 intact eccentric cord insertion, no evidence of abruption) Cord: 2 Vessels Estimated Blood Loss: 250 Provider: Obi Contreras Score 1 min: 0 (IUFD prior to labor) - Patient Data Vitals - Most Recent: Last Vital Signs Temp 98.4 F 10/15/17 12:20 Pulse 80 10/15/17 20:49 Resp 20 10/15/17 20:51 BP 139/95 H 10/15/17 20:49 Pulse Ox 97 10/15/17 20:49 Weight - Most Recent: 104 lb 6.4 oz I&O - Last 24 Hours: Intake & Output 10/15/17 10/15/17 10/15/17 06:59 14:59 22:59 Intake Total 0 Balance 0 Lab Results Last 24 Hours: Laboratory Results - last 24 hr 10/15/17 10/15/17 Range/Units 00:40 12:40 WBC 12.07 H (3.98-10.04) K/mm3 RBC 5.10 (3.98-5.22) M/mm3 Hgb 16.5 H (11.2-15.7) gm/L Hct 48.0 H (34.1-44.9) % MCV 94.1 (79.4-94.8) fl MCH 32.4 H (25.6-32.2) pg MCHC 34.4 (32.2-35.5) g/dl RDW Std Deviation 45.8 (36.4-46.3) fL Plt Count 172 L (182-369) K/mm3 MPV 11.0 (9.4-12.3) fl Blood Type O POSITIVE Gel Antibody Screen Negative Med Orders - Current: Current Medications Diphenhydramine HCl (Benadryl) 25 mg IVPUSH Q6H PRN PRN Reason: pruritis Ephedrine Sulfate (Ephedrine Sulfate) 5 mg IVPUSH ASDIRECTED PRN PRN Reason: Hypotension Fentanyl (Sublimaze) 100 mcg EPIDUR Q3H PRN PRN Reason: Pain Last Admin: 10/15/17 20:50 Dose: 100 mcg Fentanyl/Bupivacaine HCl (Fentanyl/Bupivacaine/Ns 2.5 Mcg-0.1% 50 Ml) 50 ml EPIDUR ASDIRECTED FELA Fentanyl/Bupivacaine HCl (Fentanyl/Bupivacaine/Ns 2 Mcg-0.125% 100 Ml) 100 ml EPIDUR ASDIRECTED FELA Last Admin: 10/15/17 20:50 Dose: 100 ml Lactated Ringer's (Ringers, Lactated) 1,000 mls @ 100 mls/hr IV ASDIRECTED FELA Last Admin: 10/15/17 19:03 Dose: 100 mls/hr Oxytocin 20 unit/ Lactated (Ringer's) 1,002 mls @ 6.01 mls/hr IV TITRATE FELA; Protocol Oxytocin 20 unit/ Lactated (Ringer's) 1,002 mls @ 500 mls/hr IV ASDIRECTED FELA Misoprostol (Cytotec) 25 mcg PO Q3H [facility] Stop: 10/16/17 00:31 Nalbuphine HCl (Nubain) 10 mg IVPUSH Q2H PRN PRN Reason: Pain (moderate 4-6) Last Admin: 10/15/17 19:55 Dose: 10 mg Ondansetron HCl (Zofran) 4 mg IVPUSH Q4H PRN PRN Reason: Nausea/Vomiting Sodium Chloride (Saline Flush) 10 ml FLUSH ASDIRECTED PRN PRN Reason: Keep Vein Open Discontinued Medications Misoprostol (Cytotec) Confirm Administered Dose 25 mcg .ROUTE .STK-MED ONE Stop: 10/15/17 12:11 Last Admin: 10/15/17 12:14 Dose: 25 mcg Misoprostol (Cytotec) 25 mcg VAG Q3H [facility] Stop: 10/15/17 18:31 Last Admin: 10/15/17 18:33 Dose: 25 mcg - Problem List & Annotations (1) 37 weeks gestation of SNOMED Code(s): 69518837 Code(s): Z3A.37 - 37 WEEKS GESTATION OF Status: Acute Current Visit: Yes (2) demise SNOMED Code(s): 950552374 Code(s): PMU6232 - Status: Acute Current Visit: Yes (3) Two vessel umbilical cord, delivered SNOMED Code(s): 078394356 Code(s): O69.89X0 - LABOR AND DELIVERY COMPLICATED BY OTH CORD COMP, UNSP Status: Acute Current Visit: Yes - Problem List Review Problem List Initiated/Reviewed/Updated: No - My Orders Last 24 Hours: My Active Orders 10/15/17 12:20 Patient Status [ADT] Routine Activity as Tolerated [RC] PFP Communication Order [RC] ASDIRECTED Notify Provider [RC] PFP Notify Provider [RC] PRN Vital Signs [RC] PER UNIT ROUTINE Nalbuphine [Nubain] 10 mg IVPUSH Q2H PRN Ondansetron [Zofran] 4 mg IVPUSH Q4H PRN Sodium Chloride 0.9% [Saline Flush] 10 ml FLUSH ASDIRECTED PRN Peripheral IV Insertion Adult [OM.PC] Routine Resuscitation Status Routine 10/15/17 12:21 Peripheral IV Care [RC] . DIRECTED 10/15/17 12:30 Lactated Ringers [Ringers, Lactated] 1,000 ml IV ASDIRECTED Oxytocin [Pitocin] 20 unit Lactated Ringers [Ringers, Lactated] 1,000 ml IV ASDIRECTED Oxytocin [Pitocin] 20 unit Lactated Ringers [Ringers, Lactated] 1,000 ml IV TITRATE 10/15/17 14:11 Communication Order [RC] ASDIRECTED 10/15/17 16:17 Communication Order [RC] ASDIRECTED 10/15/17 21:30 Misoprostol [Cytotec] 25 mcg PO Q3H 10/15/17 Lunch Regular Diet [DIET] - Plan Plan:: Induction of labor for demise AMA 2 vessel cord IUFD Confirmed no heart activity at bedside by [facility]. Cytotec 25 mcg placed at cervix at 1213 hrs. Brief History: [facility] LIVE . L/D Delivery Note. [facility] Number: [id number]. Date of : Patient Status: Observation. Attending Provider: Obi Contreras Number: [id number]. Date: 10/15/17 22:59Initialization Date: 10/15/17 22:59. L & D Note. - General Info. Date of Service: 10/15/17. Mother's Due Date: 11/02/17. - Delivery Note. Labor: Augmented by Oxytocin. Cervical Ripening Method: Misoprostil. Delivery Outcome: Stillbirth (223810/15/2017 LUDA IUFD (Stillbirth) 0 at delivery because of IUFD, no nuchal cord or cord entanglement weight 2250 gm/4#15 oz). Infant Delivery Method: Spontaneous Vaginal Delivery-Single. Infant Delivery Mode: Spontaneous. Presentation : Right Occiput Anterior (LUDA). Nuchal Cord: None. Prep: Povidone-Iodine ( Betadine. Anesthesia Type: Epidural. Episiotomy Type: None. Laceration: 1st Degree. Suture type: Chromic, Other (monocryl 3-0 x1). Suture size: 3-0. Placenta: Intact, Spontaneous (2241dy 10/15/2017 intact eccentric cord insertion, no evidence of abruption). Cord: 2 Vessels. Estimated Blood Loss: 250. Provider: Obi Contreras. Score 1 min: 0 (IUFD prior to labor). - Patient Data. Vitals - Most Recent: Last Vital Signs. Temp 98.4 F 10/15/17 12:20. Pulse 80 10/15/17 20:49. Resp 20 10/15/17 20:51. BP 139/95 H 10/15/17 20:49. Pulse Ox 97 10/15/17 20:49. Weight - Most Recent : 104 lb 6.4 oz. I&O - Last 24 Hours: Intake & Output. 10/16/1803. 06:5914:5922:59. Intake Total0. Balance0. Lab Results Last 24 Hours: Laboratory Results - last 24 hr. 10/16/1803/23/18Range/Units. 00:4012:40. WBC 12.07 H (3.98-10.04) K/mm3. RBC 5.10 (3.98-5.22) M/mm3. Hgb 16.5 H (11.2 -15.7) gm/L. Hct 48.0 H (34.1-44.9) %. MCV 94.1 (79.4-94.8) fl. MCH 32.4 H (25.6-32.2) pg. MCHC 34.4 (32.2-35.5) g/dl. RDW Std Deviation 45.8 (36.4- 46.3) fL. Plt Count 172 L (182-369) K/mm3. MPV 11.0 (9.4-12.3) fl. Blood Type O POSITIVE. Gel Antibody Screen Negative. Med Orders - Current: Current Medications. Diphenhydramine HCl (Benadryl) 25 mg IVPUSH Q6H PRN. PRN Reason : pruritis. Ephedrine Sulfate (Ephedrine Sulfate) 5 mg IVPUSH ASDIRECTED PRN. PRN Reason: Hypotension. Fentanyl (Sublimaze) 100 mcg EPIDUR Q3H PRN. PRN Reason: Pain. Last Admin: 10/15/17 20:50 Dose: 100 mcg. Fentanyl/Bupivacaine HCl (Fentanyl/Bupivacaine/Ns 2.5 Mcg-0.1% 50 Ml) 50 ml EPIDUR ASDIRECTED FELA. Fentanyl/Bupivacaine HCl (Fentanyl/Bupivacaine/Ns 2 Mcg-0.125% 100 Ml) 100 ml EPIDUR ASDIRECTED FELA. Last Admin: 10/15/17 20:50 Dose: 100 ml. Lactated Ringer's (Ringers, Lactated) 1,000 mls @ 100 mls/hr IV ASDIRECTED FELA. Last Admin: 10/15/17 19:03 Dose: 100 mls/hr. Oxytocin 20 unit/ Lactated (Ringer's) 1,002 mls @ 6.01 mls/hr IV TITRATE FELA; Protocol. Oxytocin 20 unit/ Lactated (Ringer's) 1,002 mls @ 500 mls/hr IV ASDIRECTED FELA. Misoprostol (Cytotec) 25 mcg PO Q3H FELA. Stop: 10/16/17 00:31. Nalbuphine HCl (Nubain) 10 mg IVPUSH Q2H PRN. PRN Reason: Pain (moderate 4-6). Last Admin: 10/15/17 19:55 Dose: 10 mg. Ondansetron HCl (Zofran) 4 mg IVPUSH Q4H PRN. PRN Reason: Nausea/Vomiting. Sodium Chloride (Saline Flush) 10 ml FLUSH ASDIRECTED PRN. PRN Reason: Keep Vein Open. Discontinued Medications. Misoprostol (Cytotec) Confirm Administered Dose 25 mcg .ROUTE .STK-MED ONE. Stop: 10/15/17 12:11. Last Admin: 10/15/17 12:14 Dose: 25 mcg. Misoprostol (Cytotec) 25 mcg VAG Q3H FELA. Stop: 10/15/17 18:31. Last Admin: 10/15/17 18:33 Dose: 25 mcg. - Problem List & Annotations. (1) 37 weeks gestation of . SNOMED Code(s ): 36713340. Code(s): Z3A.37 - 37 WEEKS GESTATION OF Status: Acute Current Visit: Yes. (2) demise. SNOMED Code(s): 873487380. Code(s): KHG3238 - Status: Acute Current Visit: Yes. (3) Two vessel umbilical cord , delivered. SNOMED Code(s): 891140628. Code(s): O69.89X0 - LABOR AND DELIVERY COMPLICATED BY OTH CORD COMP, UNSP Status: Acute Current Visit: Yes. - Problem List Review. Problem List Initiated/Reviewed/Updated: No. - My Orders. Last 24 Hours: My Active Orders. 10/15/17 12:20. Patient Status [ ADT] Routine. Activity as Tolerated [RC] PFP. Communication Order [RC] ASDIRECTED. Notify Provider [RC] PFP. Notify Provider [RC] PRN. Vital Signs [ RC] PER UNIT ROUTINE. Nalbuphine [Nubain] 10 mg IVPUSH Q2H PRN. Ondansetron [Zofran] 4 mg IVPUSH Q4H PRN. Sodium Chloride 0.9% [Saline Flush] 10 ml FLUSH ASDIRECTED PRN. Peripheral IV Insertion Adult [OM.PC] Routine. Resuscitation Status Routine. 10/15/17 12:21. Peripheral IV Care [RC] . DIRECTED. 10/15/17 12:30. Lactated Ringers [Ringers, Lactated] 1,000 ml IV ASDIRECTED. Oxytocin [Pitocin] 20 unit Lactated Ringers [Ringers, Lactated] 1 ,000 ml IV ASDIRECTED. Oxytocin [Pitocin] 20 unit Lactated Ringers [Ringers, Lactated] 1,000 ml IV TITRATE. 10/15/17 14:11. Communication Order [RC] ASDIRECTED. 10/15/17 16:17. Communication Order [RC] ASDIRECTED. 10/15/17 21: 30. Misoprostol [Cytotec] 25 mcg PO Q3H. 10/15/17 Lunch. Regular Diet [DIET ]. - Plan. Plan:: Induction of labor for demise. AMA. 2 vessel cord. IUFD. Confirmed no heart activity at bedside by [facility]. Cytotec 25 mcg placed at cervix at 1213 hrs. - Discharge Data Discharge Date: 10/16/17 Discharge Disposition: Home, Self-Care 01 Condition: Good - Discharge Diagnosis/Problem(s) (1) 37 weeks gestation of SNOMED Code(s): 03662650 ICD Code: Z3A.37 - 37 WEEKS GESTATION OF Status: Acute (2) demise SNOMED Code(s): 875515189 ICD Code: LVV5517 - Status: Acute (3) Two vessel umbilical cord, delivered SNOMED Code(s): 022589277 ICD Code: O69.89X0 - LABOR AND DELIVERY COMPLICATED BY OTH CORD COMP, UNSP Status: Acute (4) Advanced maternal age (AMA) in SNOMED Code(s): 547189477 ICD Code: UPD2343 - Status: Acute (5) First degree laceration of perineum during delivery, SNOMED Code(s): 710173806 ICD Code: O70.0 - FIRST DEGREE PERINEAL LACERATION DURING DELIVERY Status: Acute - Patient Summary/Data Complications: None Consults: None Hospital Course: Uneventful - Patient Instructions Diet: Usual Diet as Tolerated Activity: No Strenuous Activities Driving: Do Not Drive (x48 hrs) Showering/Bathing: May Shower Notify Provider of: Fever, Increased Pain, Swelling and Redness, Drainage, Nausea and/or Vomiting - Discharge Plan Prescriptions/Med Rec: Ibuprofen [Motrin] 600 mg PO Q6H PRN #50 tab PRN Reason: Pain Home Medications: Home Meds Vit #108/Iron/FA [ One Tablet] 1 tab PO DAILY 10/15/17 [History ] Ibuprofen [Motrin] 600 mg PO Q6H PRN #50 tab 10/16/17 [Rx] Patient Handouts: Vaginal Delivery, Loss, Care After Referrals: Obi Contreras MD [Primary Care Provider] - - Discharge Summary/Plan Comment DC Time >30 min.: No - Patient Data Vitals - Most Recent: Last Vital Signs Temp 98.4 F 10/15/17 12:20 Pulse 80 10/16/17 07:40 Resp 20 10/16/17 07:40 BP 139/95 H 10/16/17 07:40 Pulse Ox 97 10/15/17 20:49 Weight - Most Recent: 104 lb 6.4 oz I&O - Last 24 hours: Intake & Output 10/15/17 10/16/17 10/16/17 22:59 06:59 14:59 Intake Total 0 Balance 0 Lab Results - Last 24 hrs: Laboratory Results - last 24 hr 10/15/17 10/15/17 Range/Units 00:40 12:40 WBC 12.07 H (3.98-10.04) K/mm3 RBC 5.10 (3.98-5.22) M/mm3 Hgb 16.5 H (11.2-15.7) gm/L Hct 48.0 H (34.1-44.9) % MCV 94.1 (79.4-94.8) fl MCH 32.4 H (25.6-32.2) pg MCHC 34.4 (32.2-35.5) g/dl RDW Std Deviation 45.8 (36.4-46.3) fL Plt Count 172 L (182-369) K/mm3 MPV 11.0 (9.4-12.3) fl Blood Type O POSITIVE Gel Antibody Screen Negative Med Orders - Current: Current Medications Discontinued Medications Acetaminophen (Tylenol) 650 mg PO Q4H PRN PRN Reason: mild pain or fever Benzocaine/Menthol (Dermoplast Pain Relief [place]) 0 gm TOP ASDIRECTED PRN PRN Reason: Perineal Comfort Measure Diphenhydramine HCl (Benadryl) 25 mg IVPUSH Q6H PRN PRN Reason: pruritis Docusate Sodium (Colace) 100 mg PO BID PRN PRN Reason: Constipation Ephedrine Sulfate (Ephedrine Sulfate) 5 mg IVPUSH ASDIRECTED PRN PRN Reason: Hypotension Fentanyl (Sublimaze) 100 mcg EPIDUR Q3H PRN PRN Reason: Pain Last Admin: 10/15/17 20:50 Dose: 100 mcg Fentanyl/Bupivacaine HCl (Fentanyl/Bupivacaine/Ns 2.5 Mcg-0.1% 50 Ml) 50 ml EPIDUR ASDIRECTED FELA Fentanyl/Bupivacaine HCl (Fentanyl/Bupivacaine/Ns 2 Mcg-0.125% 100 Ml) 100 ml EPIDUR ASDIRECTED FELA Last Admin: 10/15/17 20:50 Dose: 100 ml Hydroxyzine HCl (Atarax) 10 mg PO BEDTIME FELA Hydroxyzine HCl (Atarax) 10 mg PO BEDTIME FELA Hydroxyzine HCl (Atarax) 25 mg PO BEDTIME FEAL Last Admin: 10/16/17 01:31 Dose: 25 mg Lactated Ringer's (Ringers, Lactated) 1,000 mls @ 100 mls/hr IV ASDIRECTED FELA Last Admin: 10/15/17 19:03 Dose: 100 mls/hr Oxytocin 20 unit/ Lactated (Ringer's) 1,002 mls @ 6.01 mls/hr IV TITRATE FELA; Protocol Oxytocin 20 unit/ Lactated (Ringer's) 1,002 mls @ 500 mls/hr IV ASDIRECTED FELA Ibuprofen (Motrin) 600 mg PO Q4H PRN PRN Reason: Mild pain or fever Misoprostol (Cytotec) Confirm Administered Dose 25 mcg .ROUTE .STK-MED ONE Stop: 10/15/17 12:11 Last Admin: 10/15/17 12:14 Dose: 25 mcg Misoprostol (Cytotec) 25 mcg VAG Q3H [facility] Stop: 10/15/17 18:31 Last Admin: 10/15/17 18:33 Dose: 25 mcg Misoprostol (Cytotec) 25 mcg PO Q3H [facility] Stop: 10/16/17 00:31 Nalbuphine HCl (Nubain) 10 mg IVPUSH Q2H PRN PRN Reason: Pain (moderate 4-6) Last Admin: 10/15/17 19:55 Dose: 10 mg Ondansetron HCl (Zofran) 4 mg IVPUSH Q4H PRN PRN Reason: Nausea/Vomiting Sodium Chloride (Saline Flush) 10 ml FLUSH ASDIRECTED PRN PRN Reason: Keep Vein Open Witch Yolanda (Tucks) 1 pad TOP ASDIRECTED PRN PRN Reason: Hemorrhoid pain
== END 2017-10-16 01:55 | disposition home or self-care (01) ==
LOC: JD.OBCHECK 11:44 → JD.OB 11:46 → JD.OBCHECK 12:19 → JD.OB 12:20
PROVIDERS: ADMIT Obstetrics & Gynecology; ATTEND Obstetrics & Gynecology
DX: O36.4XX0 Maternal care for intrauterine death, not applicable or unspecified (principal); O69.89X0 Labor and delivery complicated by other cord complications, not applicable or unspecified; O70.0 First degree perineal laceration during delivery; Z37.1 Single stillbirth; Z3A.37 37 weeks gestation of pregnancy; Z79.899 Other long term (current) drug therapy
CPT/HCPCS: 36415; 51702; 59300; 59409; 85027; 86850; 86900; 86901; A9270; J2300; J3010; J7120

== ENCOUNTER 2019-10-20 07:14 | Inpatient (IN) | payer BC ==
[~2019-10-20 07:14] MED LIST: Lidocaine 2% with EPINEPHrine 1:200,000 20 ML SDV ONE
[2019-10-20] MEDS ORDERED: Misoprostol 100 MCG Tab PO SCH (08:00)
[2019-10-20] MEDS ORDERED: Misoprostol 25 MCG (1/4 of 100 MCG) Tab ONE (08:01)
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
[2019-10-20] MEDS ORDERED: Nalbuphine 10 MG/ML Syringe IVPUSH PRN (08:18)
[2019-10-20] MEDS ORDERED: Lidocaine 1% 50 ML MDV INJECT ONE (08:18)
[2019-10-20] MEDS ORDERED: Sodium Chloride 0.9% 10 ML Syringe FLUSH PRN (08:18)
[2019-10-20] MEDS ORDERED: Ondansetron 4 MG/2 ML SDV IVPUSH PRN (08:18)
[2019-10-20] MEDS ORDERED: Calcium Carbonate 500 MG Tab.Chew PO PRN (08:18)
[2019-10-20] MEDS ORDERED: Oxytocin/Lactated Ringers 10 UNIT/1,000 ML BAG IV SCH ×2 (08:30)
[2019-10-20] MEDS ORDERED: Clindamycin Phosphate 900 MG in Premix Bag 1 BAG IV SCH (08:30)
[2019-10-20] MEDS ORDERED: Clindamycin Phosphate in D5W 900 MG in Premix Bag 1 BAG IV SCH ×2 (09:08)
[2019-10-20] MEDS ORDERED: Bupivacaine/fentaNYL/NS 100 ML Bag EPIDUR PRN (09:51)
[2019-10-20] MEDS ORDERED: ePHEDrine 50 MG/ML SDV IVPUSH PRN (09:51)
[2019-10-20] MEDS ORDERED: fentaNYL 100 MCG/2 ML SDV EPIDUR PRN (09:51)
[2019-10-20] MEDS ORDERED: diphenhydrAMINE 50 MG/ML SDV IVPUSH PRN (09:51)
[2019-10-20] MEDS ORDERED: Misoprostol 25 MCG (1/4 of 100 MCG) Tab PO SCH (10:10)
[2019-10-20] MEDS: Misoprostol 25 MCG (1/4 of 100 MCG) Tab VAG SCH (11:02)
[2019-10-20] MEDS: Lactated Ringers 1,000 ML IV SCH ×3 (11:40→13:50)
--- NOTE | 2019-10-20 12:34 | PCM.PREANE ---
Preanesthetic Assessment - Procedure Proposed Procedure: Continuous Labor Epidural - Anesthesia/Transfusion/Family Hx Anesthesia History: Prior Anesthesia Reaction Transfusion History: No Prior Transfusion(s) - Review of Systems General: No Symptoms Pulmonary: Cough (chronic, smoking related) Cardiovascular: No Symptoms Gastrointestinal: No Symptoms Neurological: No Symptoms Other: Reports: None - Physical Assessment Vital Signs: Last Vital Signs Temp 98.4 F 10/20/19 07:45 Pulse 70 10/20/19 07:45 Resp 16 10/20/19 07:45 BP 139/86 10/20/19 07:45 Pulse Ox 100 10/20/19 07:45 Height: 1.5 m Weight: 67.268 kg ASA Class: 2 Mental Status: Alert & Oriented x3 Airway Class: Mallampati = 1 Dentition: Reports: Missing Tooth/Teeth Thyro-Mental Finger Breadths: 3 Mouth Opening Finger Breadths: 3 ROM/Head Extension: Full Lungs: Clear to Auscultation, Normal Respiratory Effort Cardiovascular: Regular Rate, Regular Rhythm - Lab Values: Laboratory Last Values WBC 11.47 K/mm3 (3.98-10.04) H 10/20/19 08:37 RBC 4.65 M/mm3 (3.98-5.22) 10/20/19 08:37 Hgb 14.7 gm/dl (11.2-15.7) 10/20/19 08:37 Hct 43.4 % (34.1-44.9) 10/20/19 08:37 MCV 93.3 fl (79.4-94.8) 10/20/19 08:37 MCH 31.6 pg (25.6-32.2) 10/20/19 08:37 MCHC 33.9 g/dl (32.2-35.5) 10/20/19 08:37 RDW Std Deviation 45.6 fL (36.4-46.3) 10/20/19 08:37 Plt Count 229 K/mm3 (182-369) 10/20/19 08:37 MPV 10.7 fl (9.4-12.3) 10/20/19 08:37 Neut % (Auto) 66.8 % (34.0-71.1) 10/20/19 08:37 Lymph % (Auto) 23.2 % (19.3-51.7) 10/20/19 08:37 [place] % (Auto) 7.6 % (4.7-12.5) 10/20/19 08:37 Eos % (Auto) 1.9 (0.7-5.8) 10/20/19 08:37 Baso % (Auto) 0.3 % (0.1-1.2) 10/20/19 08:37 Neut # (Auto) 7.66 K/mm3 (1.56-6.13) H 10/20/19 08:37 Lymph # (Auto) 2.66 K/mm3 (1.18-3.74) 10/20/19 08:37 [place] # (Auto) 0.87 K/mm3 (0.24-0.36) H 10/20/19 08:37 Eos # (Auto) 0.22 K/mm3 (0.04-0.36) 10/20/19 08:37 Baso # (Auto) 0.04 K/mm3 (0.01-0.08) 10/20/19 08:37 Blood Type O POSITIVE 10/20/19 08:37 Gel Antibody Screen Negative 10/20/19 08:37 - Allergies Allergies/Adverse Reactions: Allergies Allergy/AdvReac Type Severity Reaction Status Date / Time amoxicillin [Amoxicillin] Allergy Cannot Verified 10/20/19 09:11 Remember Penicillins Allergy Cannot Verified 10/20/19 09:11 Remember - Acknowledgements Anesthesia Type Planned: Epidural Pt an Appropriate Candidate for the Planned Anesthesia: Yes Alternatives and Risks of Anesthesia Discussed w Pt/Guardian: Yes Pt/Guardian Understands and Agrees with Anesthesia Plan: Yes PreAnesthesia Questionnaire Cardiovascular History: Reports: None Respiratory History: Reports: Other (See Below) Other Respiratory History: chronic cough Gastrointestinal History: Reports: GERD [employer] ATT[employer]ANT History: Reports: Other OB/BYN History: 37 week demise Psychiatric History: Reports: Depression Other Psychiatric History: stopped taking anti depressants during preg. Hematologic History: Reports: Anemia - Past Surgical History Other Musculoskeletal Surgeries/Procedures:: "Had surgery on a few thumbs and ankles" - SUBSTANCE USE Smoking Status *Q: Current Every Day Smoker Tobacco Use Within Last Twelve Months: Cigarettes Recreational Drug Use History: No - HOME MEDS Home Medications: Home Meds Acetaminophen/Diphenhydramine [Tylenol Pm Ex-Strength Caplet] 1 each PO BEDTIME 10/20/19 [History] Ascorbate Calcium [Vitamin C] 500 mg PO DAILY 10/20/19 [History] Aspirin [Halfprin] 81 mg PO DAILY 10/20/19 [History] Calcium Carb/D3/Magnesium/Zinc [Jaylan Mag Zinc + D3] 1 each PO DAILY 10/20/19 [ History] Melatonin 1 mg PO BEDTIME 10/20/19 [History] No122/Iron/Folic Acid [ Multi Tablet] 1 tab PO DAILY 10/20/19 [ History] buPROPion [buPROPion XL] 150 mg PO DAILY 10/20/19 [History] diphenhydrAMINE HCL [Benadryl] 25 mg PO BEDTIME 10/20/19 [History] - CURRENT (IN HOUSE) MEDS Current Meds: Current Medications Calcium Carbonate/Glycine (Tums) 1,000 mg PO Q2H PRN PRN Reason: Indigestion Diphenhydramine HCl (Benadryl) 25 mg IVPUSH Q6H PRN PRN Reason: Itching Ephedrine Sulfate (Ephedrine Sulfate) 5 mg IVPUSH ASDIRECTED PRN PRN Reason: HYPOTENTSION Fentanyl (Sublimaze) 100 mcg EPIDUR Q3H PRN PRN Reason: Pain Fentanyl/Bupivacaine HCl (Fentanyl/Bupivacaine/Ns 2 Mcg-0.125% 100 Ml) 100 ml EPIDUR CONTINUOUS PRN PRN Reason: Pain Lactated Ringer's (Ringers, Lactated) 1,000 mls @ 100 mls/hr IV ASDIRECTED [facility] Last Admin: 10/20/19 11:40 Dose: 100 mls/hr Oxytocin/Lactated Ringer's (Pitocin In Lr 10 Units/1,000 Ml) 10 unit in 1,000 mls @ 12 mls/hr IV TITRATE FELA; Protocol Oxytocin/Lactated Ringer's (Pitocin In Lr 10 Units/1,000 Ml) 10 unit in 1,000 mls @ 500 mls/hr IV .CONTINUOUS [facility] Clindamycin Phosphate 900 mg/ (Premix) 50 mls @ 100 mls/hr IV Q8H [facility] Last Admin: 10/20/19 09:58 Dose: 100 mls/hr Misoprostol (Cytotec) 50 mcg VAG Q3H [facility] Last Admin: 10/20/19 11:02 Dose: 50 mcg Nalbuphine HCl (Nubain) 10 mg IVPUSH Q2H PRN PRN Reason: Pain Ondansetron HCl (Zofran) 4 mg IVPUSH Q4H PRN PRN Reason: Nausea/Vomiting Sodium Chloride (Saline Flush) 10 ml FLUSH ASDIRECTED PRN PRN Reason: Keep Vein Open Discontinued Medications Clindamycin Phosphate 900 mg/ (Premix) 6 mls @ 5.66 mls/hr IV Q8H [facility] Last Admin: 10/20/19 10:08 Dose: Not Given Lidocaine HCl (Xylocaine 1%) 20 ml INJECT ASDIRECTED ONE Stop: 10/20/19 08:19 Misoprostol (Cytotec) Confirm Administered Dose [address] [facility] ONE Stop: 10/20/19 08:02 Last Admin: 10/20/19 08:04 Dose: 50 mcg Misoprostol (Cytotec) 50 mcg PO Q3H [facility] Last Admin: 10/20/19 11:27 Dose: Not Given Misoprostol (Cytotec) 50 mcg PO Q3H [facility] Last Admin: 10/20/19 11:28 Dose: Not Given
--- NOTE | 2019-10-20 12:44 | PCM.SN.2 ---
- Free Text/Narrative Note: 1240 10/20/2019 Amniotomy performed light meconium stained amniotic fluid. Cat I FHR. Epidural to be placed now.
[2019-10-20] MEDS ORDERED: Lidocaine 1% 50 ML MDV ONE (15:11)
--- NOTE | 2019-10-20 15:32 | PCM.DEL ---
L & D Note - General Info Date of Service: 10/20/19 - Delivery Note Labor: Augmented by ARM Cervical Ripening Method: Misoprostil (50 mgm at 0800 & 1100 approximately) Delivery Outcome: Livebirth (male liveborn Sunday10/20/2019 at 1502 hrs EMMANUEL under epidural over no episiotomy with 2nd degree laceration repaired with 3-0 Monocryl x1 APGARS 8/9 2480 gm/5#7.5 oz) Infant Delivery Method: Spontaneous Vaginal Delivery-Single Delivery Mode: Spontaneous Presentation: Left Occiput Anterior (EMMANUEL) Nuchal Cord: None Prep: Povidone-Iodine (Betadine Anesthesia Type: None Anesthetic: Lidocaine (Xylocaine) 1% Plain (for laceration [id number]) Local Anesthetic Volume: 5cc Amniotic Fluid Description: Meconium Stained (light meconium initially then 10 % terminal abruption) Episiotomy Type: None Laceration: None Placenta: Intact, Spontaneous (1507 10/20/2019 10% marginal abruption, intact 2 vessel cord) Cord: 2 Vessels Estimated Blood Loss: 500 Resuscitation Needed: No [place]: Suctioned, Bulb Syringe, Stimulated, Warmed, [place] Used, Warmer Used Provider: Obi Contreras Score 1 min: 8 Score 5 min: 9 Induction Criteria - Otto Score Otto Score Dilation: 1-2 cm Otto Score Effacement: 0-30% Otto Score 's Station: -3 Otto Score Consistency: Soft Otto Score Cervix Position: Posterior Otto Score Total: 3 Otto Score Presenting Part: Reports: Cephalic - Induction Gestational Age >/= 39 wks: No Medical Indication: Prior IUFD at 37 weeks, AMA, Small baby Reassuring Monitoring Strip: Yes Absence of Tachy Systole: Yes - General Info Date of Service: 10/20/19 Functional Status: Reports: Pain Controlled - Review of Systems General: Reports: No Symptoms HEENT: Reports: No Symptoms Pulmonary: Reports: No Symptoms Cardiovascular: Reports: No Symptoms Gastrointestinal: Reports: No Symptoms Genitourinary: Reports: No Symptoms Musculoskeletal: Reports: No Symptoms Skin: Reports: No Symptoms Neurological: Reports: No Symptoms Psychiatric: Reports: No Symptoms - Patient Data Vitals - Most Recent: Last Vital Signs Temp 98.4 F 10/20/19 07:45 Pulse 70 10/20/19 07:45 Resp 16 10/20/19 07:45 BP 139/86 10/20/19 07:45 Pulse Ox 100 10/20/19 07:45 Weight - Most Recent: 148 lb 4.8 oz Lab Results Last 24 Hours: Laboratory Results - last 24 hr 10/20/19 10/20/19 Range/Units 08:37 08:37 WBC 11.47 H (3.98-10.04) K/mm3 RBC 4.65 (3.98-5.22) M/mm3 Hgb 14.7 (11.2-15.7) gm/dl Hct 43.4 (34.1-44.9) % MCV 93.3 (79.4-94.8) fl MCH 31.6 (25.6-32.2) pg MCHC 33.9 (32.2-35.5) g/dl RDW Std Deviation 45.6 (36.4-46.3) fL Plt Count 229 (182-369) K/mm3 MPV 10.7 (9.4-12.3) fl Neut % (Auto) 66.8 (34.0-71.1) % Lymph % (Auto) 23.2 (19.3-51.7) % [place] % (Auto) 7.6 (4.7-12.5) % Eos % (Auto) 1.9 (0.7-5.8) Baso % (Auto) 0.3 (0.1-1.2) % Neut # (Auto) 7.66 H (1.56-6.13) K/mm3 Lymph # (Auto) 2.66 (1.18-3.74) K/mm3 [place] # (Auto) 0.87 H (0.24-0.36) K/mm3 Eos # (Auto) 0.22 (0.04-0.36) K/mm3 Baso # (Auto) 0.04 (0.01-0.08) K/mm3 Blood Type O POSITIVE Gel Antibody Screen Negative Med Orders - Current: Current Medications Calcium Carbonate/Glycine (Tums) 1,000 mg PO Q2H PRN PRN Reason: Indigestion Diphenhydramine HCl (Benadryl) 25 mg IVPUSH Q6H PRN PRN Reason: Itching Ephedrine Sulfate (Ephedrine Sulfate) 5 mg IVPUSH ASDIRECTED PRN PRN Reason: HYPOTENTSION Fentanyl (Sublimaze) 100 mcg EPIDUR Q3H PRN PRN Reason: Pain Last Admin: 10/20/19 12:44 Dose: 100 mcg Fentanyl/Bupivacaine HCl (Fentanyl/Bupivacaine/Ns 2 Mcg-0.125% 100 Ml) 100 ml EPIDUR CONTINUOUS PRN PRN Reason: Pain Last Admin: 10/20/19 12:44 Dose: 100 ml Lactated Ringer's (Ringers, Lactated) 1,000 mls @ 100 mls/hr IV ASDIRECTED [facility] Last Admin: 10/20/19 13:50 Dose: 100 mls/hr Oxytocin/Lactated Ringer's (Pitocin In Lr 10 Units/1,000 Ml) 10 unit in 1,000 mls @ 12 mls/hr IV TITRATE FELA; Protocol Oxytocin/Lactated Ringer's (Pitocin In Lr 10 Units/1,000 Ml) 10 unit in 1,000 mls @ 500 mls/hr IV .CONTINUOUS [facility] Last Admin: 10/20/19 15:03 Dose: 500 mls/hr Clindamycin Phosphate 900 mg/ (Premix) 50 mls @ 100 mls/hr IV Q8H [facility] Last Admin: 10/20/19 09:58 Dose: 100 mls/hr Misoprostol (Cytotec) 50 mcg VAG Q3H [facility] Last Admin: 10/20/19 11:02 Dose: 50 mcg Nalbuphine HCl (Nubain) 10 mg IVPUSH Q2H PRN PRN Reason: Pain Ondansetron HCl (Zofran) 4 mg IVPUSH Q4H PRN PRN Reason: Nausea/Vomiting Sodium Chloride (Saline Flush) 10 ml FLUSH ASDIRECTED PRN PRN Reason: Keep Vein Open Discontinued Medications Clindamycin Phosphate 900 mg/ (Premix) 6 mls @ 5.66 mls/hr IV Q8H [facility] Last Admin: 10/20/19 10:08 Dose: Not Given Lidocaine HCl (Xylocaine 1%) 20 ml INJECT ASDIRECTED ONE Stop: 10/20/19 08:19 Last Admin: 10/20/19 15:15 Dose: 10 ml Lidocaine HCl (Xylocaine 1%) Confirm Administered Dose 50 ml .ROUTE .STK-MED ONE Stop: 10/20/19 15:12 Misoprostol (Cytotec) Confirm Administered Dose 50 mcg .ROUTE .STK-MED ONE Stop: 10/20/19 08:02 Last Admin: 10/20/19 08:04 Dose: 50 mcg Misoprostol (Cytotec) 50 mcg PO Q3H [facility] Last Admin: 10/20/19 11:27 Dose: Not Given Misoprostol (Cytotec) 50 mcg PO Q3H [facility] Last Admin: 10/20/19 11:28 Dose: Not Given - Exam General: Alert, Oriented HEENT: Pupils Equal, Mucous Membr. Moist/[place] Neck: Supple Lungs: Clear to Auscultation, Normal Respiratory Effort Cardiovascular: Regular Rate, Regular Rhythm GI/Abdominal Exam: Normal Bowel Sounds, Soft, Non-Tender (Female) Exam: Normal External Exam Extremities: Normal Inspection, Non-Tender, No Pedal Edema, Normal Capillary Refill, Pedal Edema Skin: Warm, Dry, Intact Psy/Mental Status: Alert, Normal Affect, Normal Mood - Problem List & Annotations (1) 38 weeks gestation of SNOMED Code(s): 73751880 Code(s): Z3A.38 - 38 WEEKS GESTATION OF Status: Acute Current Visit: No (2) Advanced maternal age (AMA) in SNOMED Code(s): 250929718 Code(s): YGK2507 - Status: Acute Current Visit: No (3) Two vessel umbilical cord, delivered SNOMED Code(s): 607622928, 795678933 Code(s): O69.89X0 - LABOR AND DELIVERY COMPLICATED BY OTH CORD COMP, UNSP Status: Acute Current Visit: No (4) Placenta abruption, delivered, current hospitalization SNOMED Code(s): 324705862, 561005830, 694904390 Code(s): O45.90 - PREMATURE SEPARATION OF PLACENTA, UNSP, UNSP TRIMESTER Status: Acute Current Visit: Yes (5) Second degree perineal laceration during delivery SNOMED Code(s): 7434064 Code(s): O70.1 - SECOND DEGREE PERINEAL LACERATION DURING DELIVERY Status: Acute Current Visit: Yes - Problem List Review Problem List Initiated/Reviewed/Updated: No - My Orders Last 24 Hours: My Active Orders 10/20/19 08:18 Patient Status [ADT] Routine Activity as Tolerated [RC] PFP Communication Order [RC] ASDIRECTED Communication Order [RC] ASDIRECTED Communication Order [RC] ASDIRECTED Communication Order [RC] ASDIRECTED Notify Provider [RC] ASDIRECTED Notify Provider [RC] PFP Notify Provider [RC] PRN Urinary Catheter Assessment [RC] ASDIRECTED Calcium Carbonate [Tums] 1,000 mg PO Q2H PRN Nalbuphine [Nubain] 10 mg IVPUSH Q2H PRN Ondansetron [Zofran] 4 mg IVPUSH Q4H PRN Sodium Chloride 0.9% [Saline Flush] 10 ml FLUSH ASDIRECTED PRN Electronic Heart Tones Ext w TOCO [WOMSER] Routine Electronic Heart Tones Internal [WOMSER] Per Unit Routine Peripheral IV Insertion Adult [OM.PC] Routine Resuscitation Status Routine 10/20/19 08:19 Peripheral IV Care [RC] Q2HR Pump Management, Intrathecal [RC] ASDIRECTED 10/20/19 08:24 Notify Provider [RC] ASDIRECTED 10/20/19 08:30 Lactated Ringers [Ringers, Lactated] 1,000 ml IV ASDIRECTED Oxytocin/Lactated Ringers [Pitocin in LR 10 Units/1,000 ML] 10 unit in 1,000 ml IV .CONTINUOUS Oxytocin/Lactated Ringers [Pitocin in LR 10 Units/1,000 ML] 10 unit in 1,000 ml IV TITRATE Medication Administration Instruction [OM.PC] ASDIRECTED 10/20/19 08:37 RAPID PLASMA REAGIN,RPR [CHEM] Stat 10/20/19 09:08 Clindamycin Phosphate in D5W [Cleocin in D5W] 900 mg Premix Bag 1 bag IV Q8H 10/20/19 10:15 miSOPROStoL [Cytotec] 50 mcg VAG Q3H 10/20/19 Breakfast Regular Diet [DIET] - Plan Plan:: Plan induction and delivery.
[2019-10-20] MEDS ORDERED: Acetaminophen 325 MG Tab PO PRN (16:13)
[2019-10-20] MEDS: Ibuprofen 600 MG Tab PO PRN ×2 (16:52→21:27)
[2019-10-20] MEDS: Witch Hazel Medicated Pads 40/Jar TOP PRN (16:53)
[2019-10-20] MEDS: Benzocaine/Menthol 20%-0.5% Spray 56 GM Canister TOP PRN (16:53)
[2019-10-20] MEDS: Nicotine 21 MG/24 Hr Patch TRDERM SCH (21:26)
[2019-10-21] MEDS: Misoprostol 25 MCG (1/4 of 100 MCG) Tab VAG SCH (01:30)
[2019-10-21] MEDS: Ibuprofen 600 MG Tab PO PRN ×3 (03:36→14:47)
--- NOTE | 2019-10-21 08:32 | PCM48HPAN ---
Post Anesthesia Note - EVALUATION WITHIN 48HRS OF ANESTHETIC Vital Signs in Normal Range: Yes Patient Participated in Evaluation: Yes Respiratory Function Stable: Yes Airway Patent: Yes Cardiovascular Function Stable: Yes Hydration Status Stable: Yes Pain Control Satisfactory: Yes Nausea and Vomiting Control Satisfactory: Yes Mental Status Recovered: Yes Vital Signs: Last Vital Signs Temp 98.4 F 10/21/19 03:21 Pulse 75 10/21/19 03:21 Resp 16 10/21/19 03:21 BP 105/85 10/21/19 03:21 Pulse Ox 98 10/21/19 03:21 - COMMENTS/OBSERVATIONS Free Text/Narrative:: Patient is on her day 1. Stated understanding about possible backaches following epidural anesthesia. Mentions having some minor back soreness at this time. Denies any headache or lightheadedness at this time. Comfortable now. Ambulating, no difficulty urinating.
[2019-10-21] MEDS ORDERED: Docusate Sodium 100 MG Cap PO PRN (08:50)
[2019-10-21] MEDS ORDERED: buPROPion 150 MG Tab.ER PO SCH (09:00)
[2019-10-21] MEDS: Nicotine 21 MG/24 Hr Patch TRDERM SCH (09:09)
--- NOTE | 2019-10-21 09:54 | PCM.DCSUM1 ---
Discharge Summary - Hospital Course Free Text/Narrative:: [facility] LIVE L/D Delivery Note Patient Name: NAE PALACIOS Date of : 76 Patient Status: Inpatient Attending Provider: Obi Contreras Date: 10/20/19 15:27 Initialization Date: 10/20/19 15:27 L & D Note - General Info Date of Service: 10/20/19 - Delivery Note Labor: Augmented by ARM Cervical Ripening Method: Misoprostil (50 mgm at 0800 & 1100 approximately) Delivery Outcome: Livebirth (male liveborn Sunday10/20/2019 at 1502 hrs EMMANUEL under epidural over no episiotomy with 2nd degree laceration repaired with 3-0 Monocryl x1 APGARS 8/9 2480 gm/5#7.5 oz) Infant Delivery Method: Spontaneous Vaginal Delivery-Single Delivery Mode: Spontaneous Presentation: Left Occiput Anterior (EMMANUEL) Nuchal Cord: None Prep: Povidone-Iodine (Betadine Anesthesia Type: None Anesthetic: Lidocaine (Xylocaine) 1% Plain (for laceration [id number]) Local Anesthetic Volume: 5cc Amniotic Fluid Description: Meconium Stained (light meconium initially then 10 % terminal abruption) Episiotomy Type: None Laceration: None Placenta: Intact, Spontaneous (1507 10/20/2019 10% marginal abruption, intact 2 vessel cord) Cord: 2 Vessels Estimated Blood Loss: 500 Resuscitation Needed: No : Suctioned, Bulb Syringe, Stimulated, Warmed, [place] Used, Warmer Used Provider: Obi Contreras Score 1 min: 8 Score 5 min: 9 Induction Criteria - Otto Score Otto Score Dilation: 1-2 cm Otto Score Effacement: 0-30% Otto Score 's Station: -3 Otto Score Consistency: Soft Otto Score Cervix Position: Posterior Otto Score Total: 3 Otto Score Presenting Part: Reports: Cephalic - Induction Gestational Age >/= 39 wks: No Medical Indication: Prior IUFD at 37 weeks, AMA, Small baby Reassuring Monitoring Strip: Yes Absence of Tachy Systole: Yes - General Info Date of Service: 10/20/19 Functional Status: Reports: Pain Controlled - Review of Systems General: Reports: No Symptoms HEENT: Reports: No Symptoms Pulmonary: Reports: No Symptoms Cardiovascular: Reports: No Symptoms Gastrointestinal: Reports: No Symptoms Genitourinary: Reports: No Symptoms Musculoskeletal: Reports: No Symptoms Skin: Reports: No Symptoms Neurological: Reports: No Symptoms Psychiatric: Reports: No Symptoms - Patient Data Vitals - Most Recent: Last Vital Signs Temp 98.4 F 10/20/19 07:45 Pulse 70 10/20/19 07:45 Resp 16 10/20/19 07:45 BP 139/86 10/20/19 07:45 Pulse Ox 100 10/20/19 07:45 Weight - Most Recent: 148 lb 4.8 oz Lab Results Last 24 Hours: Laboratory Results - last 24 hr 10/20/19 10/20/19 Range/Units 08:37 08:37 WBC 11.47 H (3.98-10.04) K/mm3 RBC 4.65 (3.98-5.22) M/mm3 Hgb 14.7 (11.2-15.7) gm/dl Hct 43.4 (34.1-44.9) % MCV 93.3 (79.4-94.8) fl MCH 31.6 (25.6-32.2) pg MCHC 33.9 (32.2-35.5) g/dl RDW Std Deviation 45.6 (36.4-46.3) fL Plt Count 229 (182-369) K/mm3 MPV 10.7 (9.4-12.3) fl Neut % (Auto) 66.8 (34.0-71.1) % Lymph % (Auto) 23.2 (19.3-51.7) % [place] % (Auto) 7.6 (4.7-12.5) % Eos % (Auto) 1.9 (0.7-5.8) Baso % (Auto) 0.3 (0.1-1.2) % Neut # (Auto) 7.66 H (1.56-6.13) K/mm3 Lymph # (Auto) 2.66 (1.18-3.74) K/mm3 [place] # (Auto) 0.87 H (0.24-0.36) K/mm3 Eos # (Auto) 0.22 (0.04-0.36) K/mm3 Baso # (Auto) 0.04 (0.01-0.08) K/mm3 Blood Type O POSITIVE Gel Antibody Screen Negative Med Orders - Current: Current Medications Calcium Carbonate/Glycine (Tums) 1,000 mg PO Q2H PRN PRN Reason: Indigestion Diphenhydramine HCl (Benadryl) 25 mg IVPUSH Q6H PRN PRN Reason: Itching Ephedrine Sulfate (Ephedrine Sulfate) 5 mg IVPUSH ASDIRECTED PRN PRN Reason: HYPOTENTSION Fentanyl (Sublimaze) 100 mcg EPIDUR Q3H PRN PRN Reason: Pain Last Admin: 10/20/19 12:44 Dose: 100 mcg Fentanyl/Bupivacaine HCl (Fentanyl/Bupivacaine/Ns 2 Mcg-0.125% 100 Ml) 100 ml EPIDUR CONTINUOUS PRN PRN Reason: Pain Last Admin: 10/20/19 12:44 Dose: 100 ml Lactated Ringer's (Ringers, Lactated) 1,000 mls @ 100 mls/hr IV ASDIRECTED FELA Last Admin: 10/20/19 13:50 Dose: 100 mls/hr Oxytocin/Lactated Ringer's (Pitocin In Lr 10 Units/1,000 Ml) 10 unit in 1,000 mls @ 12 mls/hr IV TITRATE FELA; Protocol Oxytocin/Lactated Ringer's (Pitocin In Lr 10 Units/1,000 Ml) 10 unit in 1,000 mls @ 500 mls/hr IV .CONTINUOUS FELA Last Admin: 10/20/19 15:03 Dose: 500 mls/hr Clindamycin Phosphate 900 mg/ (Premix) 50 mls @ 100 mls/hr IV Q8H FELA Last Admin: 10/20/19 09:58 Dose: 100 mls/hr Misoprostol (Cytotec) 50 mcg VAG Q3H FELA Last Admin: 10/20/19 11:02 Dose: 50 mcg Nalbuphine HCl (Nubain) 10 mg IVPUSH Q2H PRN PRN Reason: Pain Ondansetron HCl (Zofran) 4 mg IVPUSH Q4H PRN PRN Reason: Nausea/Vomiting Sodium Chloride (Saline Flush) 10 ml FLUSH ASDIRECTED PRN PRN Reason: Keep Vein Open Discontinued Medications Clindamycin Phosphate 900 mg/ (Premix) 6 mls @ 5.66 mls/hr IV Q8H [facility] Last Admin: 10/20/19 10:08 Dose: Not Given Lidocaine HCl (Xylocaine 1%) 20 ml INJECT ASDIRECTED ONE Stop: 10/20/19 08:19 Last Admin: 10/20/19 15:15 Dose: 10 ml Lidocaine HCl (Xylocaine 1%) Confirm Administered Dose 50 ml .ROUTE .STK-MED ONE Stop: 10/20/19 15:12 Misoprostol (Cytotec) Confirm Administered Dose 50 mcg .ROUTE .STK-MED ONE Stop: 10/20/19 08:02 Last Admin: 10/20/19 08:04 Dose: 50 mcg Misoprostol (Cytotec) 50 mcg PO Q3H [facility] Last Admin: 10/20/19 11:27 Dose: Not Given Misoprostol (Cytotec) 50 mcg PO Q3H [facility] Last Admin: 10/20/19 11:28 Dose: Not Given - Exam General: Alert, Oriented HEENT: Pupils Equal, Mucous Membr. Moist/[place] Neck: Supple Lungs: Clear to Auscultation, Normal Respiratory Effort Cardiovascular: Regular Rate, Regular Rhythm GI/Abdominal Exam: Normal Bowel Sounds, Soft, Non-Tender (Female) Exam: Normal External Exam Extremities: Normal Inspection, Non-Tender, No Pedal Edema, Normal Capillary Refill, Pedal Edema Skin: Warm, Dry, Intact Psy/Mental Status: Alert, Normal Affect, Normal Mood - Problem List & Annotations (1) 38 weeks gestation of SNOMED Code(s): 78171252 Code(s): Z3A.38 - 38 WEEKS GESTATION OF Status: Acute Current Visit: No (2) Advanced maternal age (AMA) in SNOMED Code(s): 809630730 Code(s): PCL2856 - Status: Acute Current Visit: No (3) Two vessel umbilical cord, delivered SNOMED Code(s): 811255549, 821358190 Code(s): O69.89X0 - LABOR AND DELIVERY COMPLICATED BY OTH CORD COMP, UNSP Status: Acute Current Visit: No (4) Placenta abruption, delivered, current hospitalization SNOMED Code(s): 806095684, 954539949, 039552180 Code(s): O45.90 - PREMATURE SEPARATION OF PLACENTA, UNSP, UNSP TRIMESTER Status: Acute Current Visit: Yes (5) Second degree perineal laceration during delivery SNOMED Code(s): 0425836 Code(s): O70.1 - SECOND DEGREE PERINEAL LACERATION DURING DELIVERY Status: Acute Current Visit: Yes - Problem List Review Problem List Initiated/Reviewed/Updated: No - My Orders Last 24 Hours: My Active Orders 10/20/19 08:18 Patient Status [ADT] Routine Activity as Tolerated [RC] PFP Communication Order [RC] ASDIRECTED Communication Order [RC] ASDIRECTED Communication Order [RC] ASDIRECTED Communication Order [RC] ASDIRECTED Notify Provider [RC] ASDIRECTED Notify Provider [RC] PFP Notify Provider [RC] PRN Urinary Catheter Assessment [RC] ASDIRECTED Calcium Carbonate [Tums] 1,000 mg PO Q2H PRN Nalbuphine [Nubain] 10 mg IVPUSH Q2H PRN Ondansetron [Zofran] 4 mg IVPUSH Q4H PRN Sodium Chloride 0.9% [Saline Flush] 10 ml FLUSH ASDIRECTED PRN Electronic Heart Tones Ext w TOCO [WOMSER] Routine Electronic Heart Tones Internal [WOMSER] Per Unit Routine Peripheral IV Insertion Adult [OM.PC] Routine Resuscitation Status Routine 10/20/19 08:19 Peripheral IV Care [RC] Q2HR Pump Management, Intrathecal [RC] ASDIRECTED 10/20/19 08:24 Notify Provider [RC] ASDIRECTED 10/20/19 08:30 Lactated Ringers [Ringers, Lactated] 1,000 ml IV ASDIRECTED Oxytocin/Lactated Ringers [Pitocin in LR 10 Units/1,000 ML] 10 unit in 1,000 ml IV .CONTINUOUS Oxytocin/Lactated Ringers [Pitocin in LR 10 Units/1,000 ML] 10 unit in 1,000 ml IV TITRATE Medication Administration Instruction [OM.PC] ASDIRECTED 10/20/19 08:37 RAPID PLASMA REAGIN,RPR [CHEM] Stat 10/20/19 09:08 Clindamycin Phosphate in D5W [Cleocin in D5W] 900 mg Premix Bag 1 bag IV Q8H 10/20/19 10:15 miSOPROStoL [Cytotec] 50 mcg VAG Q3H 10/20/19 Breakfast Regular Diet [DIET] - Plan Plan:: Plan induction and delivery. HPI Initial Comments: [facility] LIVE L/D Delivery Note Patient Name: NAE PALACIOS Date of : 76 Patient Status: Inpatient Attending Provider: Obi Contreras Date: 10/20/19 15:27 Initialization Date: 10/20/19 15:27 L & D Note - General Info Date of Service: 10/20/19 - Delivery Note Labor: Augmented by ARM Cervical Ripening Method: Misoprostil (50 mgm at 0800 & 1100 approximately) Delivery Outcome: Livebirth (male liveborn Sunday10/20/2019 at 1502 hrs EMMANUEL under epidural over no episiotomy with 2nd degree laceration repaired with 3-0 Monocryl x1 APGARS 8/9 2480 gm/5#7.5 oz) Delivery Method: Spontaneous Vaginal Delivery-Single Infant Delivery Mode: Spontaneous Presentation: Left Occiput Anterior (EMMANUEL) Nuchal Cord: None Prep: Povidone-Iodine (Betadine Anesthesia Type: None Anesthetic: Lidocaine (Xylocaine) 1% Plain (for laceration [id number]) Local Anesthetic Volume: 5cc Amniotic Fluid Description: Meconium Stained (light meconium initially then 10 % terminal abruption) Episiotomy Type: None Laceration: None Placenta: Intact, Spontaneous (1507 10/20/2019 10% marginal abruption, intact 2 vessel cord) Cord: 2 Vessels Estimated Blood Loss: 500 Resuscitation Needed: No : Suctioned, Bulb Syringe, Stimulated, Warmed, [place] Used, Warmer Used Provider: Obi Contreras Score 1 min: 8 Score 5 min: 9 Induction Criteria - Otto Score Otto Score Dilation: 1-2 cm Otto Score Effacement: 0-30% Otto Score Infant's Station: -3 Otto Score Consistency: Soft Otto Score Cervix Position: Posterior Otto Score Total: 3 Otto Score Presenting Part: Reports: Cephalic - Induction Gestational Age >/= 39 wks: No Medical Indication: Prior IUFD at 37 weeks, AMA, Small baby Reassuring Monitoring Strip: Yes Absence of Tachy Systole: Yes - General Info Date of Service: 10/20/19 Functional Status: Reports: Pain Controlled - Review of Systems General: Reports: No Symptoms HEENT: Reports: No Symptoms Pulmonary: Reports: No Symptoms Cardiovascular: Reports: No Symptoms Gastrointestinal: Reports: No Symptoms Genitourinary: Reports: No Symptoms Musculoskeletal: Reports: No Symptoms Skin: Reports: No Symptoms Neurological: Reports: No Symptoms Psychiatric: Reports: No Symptoms - Patient Data Vitals - Most Recent: Last Vital Signs Temp 98.4 F 10/20/19 07:45 Pulse 70 10/20/19 07:45 Resp 16 10/20/19 07:45 BP 139/86 10/20/19 07:45 Pulse Ox 100 10/20/19 07:45 Weight - Most Recent: 148 lb 4.8 oz Lab Results Last 24 Hours: Laboratory Results - last 24 hr 10/20/19 10/20/19 Range/Units 08:37 08:37 WBC 11.47 H (3.98-10.04) K/mm3 RBC 4.65 (3.98-5.22) M/mm3 Hgb 14.7 (11.2-15.7) gm/dl Hct 43.4 (34.1-44.9) % MCV 93.3 (79.4-94.8) fl MCH 31.6 (25.6-32.2) pg MCHC 33.9 (32.2-35.5) g/dl RDW Std Deviation 45.6 (36.4-46.3) fL Plt Count 229 (182-369) K/mm3 MPV 10.7 (9.4-12.3) fl Neut % (Auto) 66.8 (34.0-71.1) % Lymph % (Auto) 23.2 (19.3-51.7) % [place] % (Auto) 7.6 (4.7-12.5) % Eos % (Auto) 1.9 (0.7-5.8) Baso % (Auto) 0.3 (0.1-1.2) % Neut # (Auto) 7.66 H (1.56-6.13) K/mm3 Lymph # (Auto) 2.66 (1.18-3.74) K/mm3 [place] # (Auto) 0.87 H (0.24-0.36) K/mm3 Eos # (Auto) 0.22 (0.04-0.36) K/mm3 Baso # (Auto) 0.04 (0.01-0.08) K/mm3 Blood Type O POSITIVE Gel Antibody Screen Negative Med Orders - Current: Current Medications Calcium Carbonate/Glycine (Tums) 1,000 mg PO Q2H PRN PRN Reason: Indigestion Diphenhydramine HCl (Benadryl) 25 mg IVPUSH Q6H PRN PRN Reason: Itching Ephedrine Sulfate (Ephedrine Sulfate) 5 mg IVPUSH ASDIRECTED PRN PRN Reason: HYPOTENTSION Fentanyl (Sublimaze) 100 mcg EPIDUR Q3H PRN PRN Reason: Pain Last Admin: 10/20/19 12:44 Dose: 100 mcg Fentanyl/Bupivacaine HCl (Fentanyl/Bupivacaine/Ns 2 Mcg-0.125% 100 Ml) 100 ml EPIDUR CONTINUOUS PRN PRN Reason: Pain Last Admin: 10/20/19 12:44 Dose: 100 ml Lactated Ringer's (Ringers, Lactated) 1,000 mls @ 100 mls/hr IV ASDIRECTED FELA Last Admin: 10/20/19 13:50 Dose: 100 mls/hr Oxytocin/Lactated Ringer's (Pitocin In Lr 10 Units/1,000 Ml) 10 unit in 1,000 mls @ 12 mls/hr IV TITRATE FELA; Protocol Oxytocin/Lactated Ringer's (Pitocin In Lr 10 Units/1,000 Ml) 10 unit in 1,000 mls @ 500 mls/hr IV .CONTINUOUS FELA Last Admin: 10/20/19 15:03 Dose: 500 mls/hr Clindamycin Phosphate 900 mg/ (Premix) 50 mls @ 100 mls/hr IV Q8H FELA Last Admin: 10/20/19 09:58 Dose: 100 mls/hr Misoprostol (Cytotec) 50 mcg VAG Q3H FELA Last Admin: 10/20/19 11:02 Dose: 50 mcg Nalbuphine HCl (Nubain) 10 mg IVPUSH Q2H PRN PRN Reason: Pain Ondansetron HCl (Zofran) 4 mg IVPUSH Q4H PRN PRN Reason: Nausea/Vomiting Sodium Chloride (Saline Flush) 10 ml FLUSH ASDIRECTED PRN PRN Reason: Keep Vein Open Discontinued Medications Clindamycin Phosphate 900 mg/ (Premix) 6 mls @ 5.66 mls/hr IV Q8H [facility] Last Admin: 10/20/19 10:08 Dose: Not Given Lidocaine HCl (Xylocaine 1%) 20 ml INJECT ASDIRECTED ONE Stop: 10/20/19 08:19 Last Admin: 10/20/19 15:15 Dose: 10 ml Lidocaine HCl (Xylocaine 1%) Confirm Administered Dose 50 ml .ROUTE .STK-MED ONE Stop: 10/20/19 15:12 Misoprostol (Cytotec) Confirm Administered Dose 50 mcg .ROUTE .STK-MED ONE Stop: 10/20/19 08:02 Last Admin: 10/20/19 08:04 Dose: 50 mcg Misoprostol (Cytotec) 50 mcg PO Q3H [facility] Last Admin: 10/20/19 11:27 Dose: Not Given Misoprostol (Cytotec) 50 mcg PO Q3H [facility] Last Admin: 10/20/19 11:28 Dose: Not Given - Exam General: Alert, Oriented HEENT: Pupils Equal, Mucous Membr. Moist/[place] Neck: Supple Lungs: Clear to Auscultation, Normal Respiratory Effort Cardiovascular: Regular Rate, Regular Rhythm GI/Abdominal Exam: Normal Bowel Sounds, Soft, Non-Tender (Female) Exam: Normal External Exam Extremities: Normal Inspection, Non-Tender, No Pedal Edema, Normal Capillary Refill, Pedal Edema Skin: Warm, Dry, Intact Psy/Mental Status: Alert, Normal Affect, Normal Mood - Problem List & Annotations (1) 38 weeks gestation of SNOMED Code(s): 76081467 Code(s): Z3A.38 - 38 WEEKS GESTATION OF Status: Acute Current Visit: No (2) Advanced maternal age (AMA) in SNOMED Code(s): 844888990 Code(s): OSX4633 - Status: Acute Current Visit: No (3) Two vessel umbilical cord, delivered SNOMED Code(s): 815127023, 156401086 Code(s): O69.89X0 - LABOR AND DELIVERY COMPLICATED BY OTH CORD COMP, UNSP Status: Acute Current Visit: No (4) Placenta abruption, delivered, current hospitalization SNOMED Code(s): 962766140, 593105111, 976707945 Code(s): O45.90 - PREMATURE SEPARATION OF PLACENTA, UNSP, UNSP TRIMESTER Status: Acute Current Visit: Yes (5) Second degree perineal laceration during delivery SNOMED Code(s): 5912890 Code(s): O70.1 - SECOND DEGREE PERINEAL LACERATION DURING DELIVERY Status: Acute Current Visit: Yes - Problem List Review Problem List Initiated/Reviewed/Updated: No - My Orders Last 24 Hours: My Active Orders 10/20/19 08:18 Patient Status [ADT] Routine Activity as Tolerated [RC] PFP Communication Order [RC] ASDIRECTED Communication Order [RC] ASDIRECTED Communication Order [RC] ASDIRECTED Communication Order [RC] ASDIRECTED Notify Provider [RC] ASDIRECTED Notify Provider [RC] PFP Notify Provider [RC] PRN Urinary Catheter Assessment [RC] ASDIRECTED Calcium Carbonate [Tums] 1,000 mg PO Q2H PRN Nalbuphine [Nubain] 10 mg IVPUSH Q2H PRN Ondansetron [Zofran] 4 mg IVPUSH Q4H PRN Sodium Chloride 0.9% [Saline Flush] 10 ml FLUSH ASDIRECTED PRN Electronic Heart Tones Ext w TOCO [WOMSER] Routine Electronic Heart Tones Internal [WOMSER] Per Unit Routine Peripheral IV Insertion Adult [OM.PC] Routine Resuscitation Status Routine 10/20/19 08:19 Peripheral IV Care [RC] Q2HR Pump Management, Intrathecal [RC] ASDIRECTED 10/20/19 08:24 Notify Provider [RC] ASDIRECTED 10/20/19 08:30 Lactated Ringers [Ringers, Lactated] 1,000 ml IV ASDIRECTED Oxytocin/Lactated Ringers [Pitocin in LR 10 Units/1,000 ML] 10 unit in 1,000 ml IV .CONTINUOUS Oxytocin/Lactated Ringers [Pitocin in LR 10 Units/1,000 ML] 10 unit in 1,000 ml IV TITRATE Medication Administration Instruction [OM.PC] ASDIRECTED 10/20/19 08:37 RAPID PLASMA REAGIN,RPR [CHEM] Stat 10/20/19 09:08 Clindamycin Phosphate in D5W [Cleocin in D5W] 900 mg Premix Bag 1 bag IV Q8H 10/20/19 10:15 miSOPROStoL [Cytotec] 50 mcg VAG Q3H 10/20/19 Breakfast Regular Diet [DIET] - Plan Plan:: Plan induction and delivery. Brief History: [facility] LIVE . L[facility]D [id number] Date of : Patient Status: Inpatient. Attending Provider: Obi Contrerasccount Number: [id number]. Date: 10/20/19 15:27Initialization Date: 10/20/19 15:27. L & D Note. - General Info. Date of Service: 10/20/19. - Delivery Note. Labor: Augmented by ARM. Cervical Ripening Method: Misoprostil (50 mgm at 0800 & 1100 approximately). Delivery Outcome: Livebirth (male liveborn Sunday at 1502 hrs EMMANUEL under epidural over no episiotomy with 2nd degree laceration repaired with 3-0 Monocryl x1 APGARS 8/9 2480 gm/5#7.5 oz). Infant Delivery Method: Spontaneous Vaginal Delivery-Single. Delivery Mode: Spontaneous. Presentation: Left Occiput Anterior (EMMANUEL). Nuchal Cord: None. Prep: Povidone-Iodine (Betadine. Anesthesia Type: None. Anesthetic: Lidocaine (Xylocaine) 1% Plain (for laceration [id number]). Local Anesthetic Volume: 5cc. Amniotic Fluid Description: Meconium Stained (light meconium initially then 10% terminal abruption). Episiotomy Type: None. Laceration: None. Placenta: Intact, Spontaneous (1507 10/20/2019 10% marginal abruption, intact 2 vessel cord). Cord: 2 Vessels. Estimated Blood Loss: 500. Resuscitation Needed: No. [place]: Suctioned, Bulb Syringe, Stimulated, Warmed , [place] Used, Warmer Used. Provider: Obi Contreras. Score 1 min: 8. Score 5 min: 9. Induction Criteria. - Otto Score. Otto Score Dilation: 1-2 cm. Otto Score Effacement: 0-30%. Otto Score 's Station: -3. Otto Score Consistency: Soft. Otto Score Cervix Position: Posterior. Otto Score Total: 3. Otto Score Presenting Part: Reports: Cephalic. - Induction. Gestational Age >/= 39 wks: No. Medical Indication: Prior IUFD at 37 weeks, AMA, Small baby. Reassuring Monitoring Strip: Yes. Absence of Tachy Systole: Yes. - General Info. Date of Service: 10/20/19. Functional Status: Reports: Pain Controlled. - Review of Systems. General: Reports: No Symptoms. HEENT: Reports: No Symptoms. Pulmonary: Reports: No Symptoms. Cardiovascular: Reports: No Symptoms. Gastrointestinal: Reports: No Symptoms. Genitourinary: Reports: No Symptoms. Musculoskeletal: Reports: No Symptoms. Skin: Reports: No Symptoms. Neurological: Reports: No Symptoms. Psychiatric: Reports: No Symptoms. - Patient Data. Vitals - Most Recent: Last Vital Signs. Temp 98.4 F 10/20/19 07:45. Pulse 70 10/20/19 07:45. Resp 16 10/20/19 07:45. BP 139/86 07:45. Pulse Ox 100 10/20/19 07:45. Weight - Most Recent: 148 lb 4.8 oz. Lab Results Last 24 Hours: Laboratory Results - last 24 hr. 10/20/2003Range/Units. 08:3708:37. WBC 11.47 H (3.98-10.04) K/mm3. RBC 4.65 (3.98- 5.22) M/mm3. Hgb 14.7 (11.2-15.7) gm/dl. Hct 43.4 (34.1-44.9) %. MCV 93.3 (79.4-94.8) fl. MCH 31.6 (25.6-32.2) pg. MCHC 33.9 (32.2-35.5) g/dl. RDW Std Deviation 45.6 (36.4-46.3) fL. Plt Count 229 (182-369) K/mm3. MPV 10.7 ( 9.4-12.3) fl. Neut % (Auto) 66.8 (34.0-71.1) %. Lymph % (Auto) 23.2 (19.3- 51.7) %. [place] % (Auto) 7.6 (4.7-12.5) %. Eos % (Auto) 1.9 (0.7-5.8). Baso % (Auto) 0.3 (0.1-1.2) %. Neut # (Auto) 7.66 H (1.56-6.13) K/mm3. Lymph # ( Auto) 2.66 (1.18-3.74) K/mm3. [place] # (Auto) 0.87 H (0.24-0.36) K/mm3. Eos # (Auto) 0.22 (0.04-0.36) K/mm3. Baso # (Auto) 0.04 (0.01-0.08) K/mm3. Blood Type O POSITIVE. Gel Antibody Screen Negative. Med Orders - Current: Current Medications. Calcium Carbonate/Glycine (Tums) 1,000 mg PO Q2H PRN. PRN Reason : Indigestion. Diphenhydramine HCl (Benadryl) 25 mg IVPUSH Q6H PRN. PRN Reason: Itching. Ephedrine Sulfate (Ephedrine Sulfate) 5 mg IVPUSH ASDIRECTED PRN. PRN Reason: HYPOTENTSION. Fentanyl (Sublimaze) 100 mcg EPIDUR Q3H PRN. PRN Reason: Pain. Last Admin: 10/20/19 12:44 Dose: 100 mcg. Fentanyl/ Bupivacaine HCl (Fentanyl/Bupivacaine/Ns 2 Mcg-0.125% 100 Ml) 100 ml EPIDUR CONTINUOUS PRN. PRN Reason: Pain. Last Admin: 10/20/19 12:44 Dose: 100 ml. Lactated Ringer's (Ringers, Lactated) 1,000 mls @ 100 mls/hr IV ASDIRECTED FELA. Last Admin: 10/20/19 13:50 Dose: 100 mls/hr. Oxytocin/Lactated Ringer's (Pitocin In Lr 10 Units/1,000 Ml) 10 unit in 1,000 mls @ 12 mls/hr IV TITRATE FELA; Protocol. Oxytocin/Lactated Ringer's (Pitocin In Lr 10 Units/1,000 Ml) 10 unit in 1,000 mls @ 500 mls/hr IV .CONTINUOUS FELA. Last Admin: 10/20/19 15: 03 Dose: 500 mls/hr. Clindamycin Phosphate 900 mg/ (Premix) 50 mls @ 100 mls/ hr IV Q8H FELA. Last Admin: 10/20/19 09:58 Dose: 100 mls/hr. Misoprostol ( Cytotec) 50 mcg VAG Q3H FELA. Last Admin: 10/20/19 11:02 Dose: 50 mcg. Nalbuphine HCl (Nubain) 10 mg IVPUSH Q2H PRN. PRN Reason: Pain. Ondansetron HCl (Zofran) 4 mg IVPUSH Q4H PRN. PRN Reason: Nausea/Vomiting. Sodium Chloride (Saline Flush) 10 ml FLUSH ASDIRECTED PRN. PRN Reason: Keep Vein Open. Discontinued Medications. Clindamycin Phosphate 900 mg/ (Premix) 6 mls @ 5.66 mls/hr IV Q8H FELA. Last Admin: 10/20/19 10:08 Dose: Not Given. Lidocaine HCl (Xylocaine 1%) 20 ml INJECT ASDIRECTED ONE. Stop: 10/20/19 08: 19. Last Admin: 10/20/19 15:15 Dose: 10 ml. Lidocaine HCl (Xylocaine 1%) Confirm Administered Dose 50 ml .ROUTE .STK-MED ONE. Stop: 10/20/19 15:12. Misoprostol (Cytotec) Confirm Administered Dose 50 mcg .ROUTE .STK-MED ONE. Stop: 10/20/19 08:02. Last Admin: 10/20/19 08:04 Dose: 50 mcg. Misoprostol ( Cytotec) 50 mcg PO Q3H FELA. Last Admin: 10/20/19 11:27 Dose: Not Given. Misoprostol (Cytotec) 50 mcg PO Q3H FELA. Last Admin: 10/20/19 11:28 Dose: Not Given. - Exam. General: Alert, Oriented. HEENT: Pupils Equal, Mucous Membr. Moist/[place]. Neck: Supple. Lungs: Clear to Auscultation, Normal Respiratory Effort. Cardiovascular: Regular Rate, Regular Rhythm. GI/ Abdominal Exam: Normal Bowel Sounds, Soft, Non-Tender. (Female) Exam: Normal External Exam. Extremities: Normal Inspection, Non-Tender, No Pedal Edema, Normal Capillary Refill, Pedal Edema. Skin: Warm, Dry, Intact. Psy/ Mental Status: Alert, Normal Affect, Normal Mood. - Problem List & Annotations. (1) 38 weeks gestation of . SNOMED Code(s): 61077629. Code(s): Z3A.38 - 38 WEEKS GESTATION OF Status: Acute Current Visit: No. (2) Advanced maternal age (AMA) in . SNOMED Code(s): 633630781. Code(s): XNX7266 - Status: Acute Current Visit: No. (3) Two vessel umbilical cord, delivered. SNOMED Code(s): 137941874, 561848696. Code(s ): O69.89X0 - LABOR AND DELIVERY COMPLICATED BY OTH CORD COMP, UNSP Status: Acute Current Visit: No. (4) Placenta abruption, delivered, current hospitalization. SNOMED Code(s): 152746974, 639230578, 092250334. Code(s): O45.90 - PREMATURE SEPARATION OF PLACENTA, UNSP, UNSP TRIMESTER Status: Acute Current Visit: Yes. (5) Second degree perineal laceration during delivery. SNOMED Code(s): 7618547. Code(s): O70.1 - SECOND DEGREE PERINEAL LACERATION DURING DELIVERY Status: Acute Current Visit: Yes. - Problem List Review. Problem List Initiated/Reviewed/Updated: No. - My Orders. Last 24 Hours: My Active Orders. 10/20/19 08:18. Patient Status [ADT] Routine. Activity as Tolerated [RC] PFP. Communication Order [RC] ASDIRECTED. Communication Order [ RC] ASDIRECTED. Communication Order [RC] ASDIRECTED. Communication Order [RC] ASDIRECTED. Notify Provider [RC] ASDIRECTED. Notify Provider [RC] PFP. Notify Provider [RC] PRN. Urinary Catheter Assessment [RC] ASDIRECTED. Calcium Carbonate [Tums] 1,000 mg PO Q2H PRN. Nalbuphine [Nubain] 10 mg IVPUSH Q2H PRN. Ondansetron [Zofran] 4 mg IVPUSH Q4H PRN. Sodium Chloride 0.9% [Saline Flush] 10 ml FLUSH ASDIRECTED PRN. Electronic Heart Tones Ext w TOCO [WOMSER] Routine. Electronic Heart Tones Internal [WOMSER] Per Unit Routine. Peripheral IV Insertion Adult [OM.PC] Routine. Resuscitation Status Routine. 10/20/19 08:19. Peripheral IV Care [RC] Q2HR. Pump Management, Intrathecal [RC] ASDIRECTED. 10/20/19 08:24. Notify Provider [RC] ASDIRECTED. 10/20/19 08:30. Lactated Ringers [Ringers, Lactated] 1,000 ml IV ASDIRECTED. Oxytocin/Lactated Ringers [Pitocin in LR 10 Units/1,000 ML] 10 unit in 1,000 ml IV .CONTINUOUS. Oxytocin/Lactated Ringers [Pitocin in LR 10 Units/1,000 ML] 10 unit in 1,000 ml IV TITRATE. Medication Administration Instruction [OM.PC] ASDIRECTED. 10/20/19 08:37. RAPID PLASMA REAGIN,RPR [CHEM ] Stat. 10/20/19 09:08. Clindamycin Phosphate in D5W [Cleocin in D5W] 900 mg Premix Bag 1 bag IV Q8H. 10/20/19 10:15. miSOPROStoL [Cytotec] 50 mcg VAG Q3H. 10/20/19 Breakfast. Regular Diet [DIET]. - Plan. Plan:: Plan induction and delivery. Diagnosis: Stroke: No - Discharge Data Discharge Date: 10/21/19 (1600) Discharge Disposition: Home, Self-Care 01 Condition: Good - Referral to Home Health Primary Care Physician: Obi Contreras MD - Discharge Diagnosis/Problem(s) (1) 38 weeks gestation of SNOMED Code(s): 22489849 ICD Code: Z3A.38 - 38 WEEKS GESTATION OF Status: Acute Current Visit: No (2) Advanced maternal age (AMA) in SNOMED Code(s): 309766618 ICD Code: [id number] - Status: Acute Current Visit: No (3) Two vessel umbilical cord, delivered SNOMED Code(s): 475616449, 373122671 ICD Code: O69.89X0 - LABOR AND DELIVERY COMPLICATED BY OTH CORD COMP, UNSP Status: Acute Current Visit: No (4) Placenta abruption, delivered, current hospitalization SNOMED Code(s): 406549206, 692150211, 595453391 ICD Code: O45.90 - PREMATURE SEPARATION OF PLACENTA, UNSP, UNSP TRIMESTER Status: Acute Current Visit: Yes (5) Second degree perineal laceration during delivery SNOMED Code(s): 8033418 ICD Code: O70.1 - SECOND DEGREE PERINEAL LACERATION DURING DELIVERY Status : Acute Current Visit: Yes - Patient Summary/Data Complications: None Consults: none Hospital Course: Uneventful - Patient Instructions Diet: Usual Diet as Tolerated Driving: Do Not Drive (x48 hrs) Showering/Bathing: May Shower Notify Provider of: Fever, Increased Pain, Swelling and Redness, Drainage, Nausea and/or Vomiting - Discharge Plan *PRESCRIPTION DRUG MONITORING PROGRAM REVIEWED*: Not Applicable *COPY OF PRESCRIPTION DRUG MONITORING REPORT IN PATIENT PATRICIA: Not Applicable Home Medications: Home Meds Acetaminophen/Diphenhydramine [Tylenol Pm Ex-Strength Caplet] 1 each PO BEDTIME 10/20/19 [History] Ascorbate Calcium [Vitamin C] 500 mg PO DAILY 10/20/19 [History] Aspirin [Halfprin] 81 mg PO DAILY 10/20/19 [History] Calcium Carb/D3/Magnesium/Zinc [Jaylan Mag Zinc + D3] 1 each PO DAILY 10/20/19 [ History] Melatonin 1 mg PO BEDTIME 10/20/19 [History] No122/Iron/Folic Acid [ Multi Tablet] 1 tab PO DAILY 10/20/19 [ History] buPROPion [buPROPion XL] 150 mg PO DAILY 10/20/19 [History] diphenhydrAMINE HCL [Benadryl] 25 mg PO BEDTIME 10/20/19 [History] Acetaminophen [Tylenol] 650 mg PO Q4H PRN tablet 10/21/19 [Rx] Docusate Sodium [Colace] 100 mg PO BID PRN cap 10/21/19 [Rx] toribio Boyce [Tucks] 1 pad TOP ASDIRECTED PRN pad 10/21/19 [Rx] Patient Handouts: Steps to Quit Smoking - Discharge Summary/Plan Comment DC Time >30 min.: No - Patient Data Vitals - Most Recent: Last Vital Signs Temp 98.4 F 10/21/19 03:21 Pulse 75 10/21/19 03:21 Resp 16 10/21/19 03:21 BP 105/85 10/21/19 03:21 Pulse Ox 98 10/21/19 03:21 Weight - Most Recent: 148 lb 4.8 oz I&O - Last 24 hours: Intake & Output 10/20/19 10/21/19 10/21/19 22:59 06:59 14:59 Intake Total 820 Balance 820 Lab Results - Last 24 hrs: Laboratory Results - last 24 hr 10/20/19 10/21/19 Range/Units 08:37 05:38 WBC 14.04 H (3.98-10.04) K/mm3 RBC 3.72 L (3.98-5.22) M/mm3 Hgb 11.6 D (11.2-15.7) gm/dl Hct 35.2 (34.1-44.9) % MCV 94.6 (79.4-94.8) fl MCH 31.2 (25.6-32.2) pg MCHC 33.0 (32.2-35.5) g/dl RDW Std Deviation 44.6 (36.4-46.3) fL Plt Count 187 (182-369) K/mm3 MPV 10.5 (9.4-12.3) fl Neut % (Auto) 76.2 H (34.0-71.1) % Lymph % (Auto) 16.7 L (19.3-51.7) % [place] % (Auto) 6.3 (4.7-12.5) % Eos % (Auto) 0.5 L (0.7-5.8) Baso % (Auto) 0.2 (0.1-1.2) % Neut # (Auto) 10.69 H (1.56-6.13) K/mm3 Lymph # (Auto) 2.35 (1.18-3.74) K/mm3 [place] # (Auto) 0.89 H (0.24-0.36) K/mm3 Eos # (Auto) 0.07 (0.04-0.36) K/mm3 Baso # (Auto) 0.03 (0.01-0.08) K/mm3 RPR Non-reactive (NONREACTIVE) Med Orders - Current: Current Medications Acetaminophen (Tylenol) 650 mg PO Q4H PRN PRN Reason: mild pain or fever Benzocaine/Menthol (Dermoplast Pain Relief [place]) 0 gm TOP ASDIRECTED PRN PRN Reason: perineal pain Last Admin: 10/20/19 16:53 Dose: 1 can Bupropion HCl (Wellbutrin Xl) 150 mg PO DAILY FELA Docusate Sodium (Colace) 100 mg PO BID PRN PRN Reason: Constipation Last Admin: 10/21/19 09:15 Dose: 100 mg Ibuprofen (Motrin) 600 mg PO Q4H PRN PRN Reason: Mild pain or fever Last Admin: 10/21/19 09:08 Dose: 600 mg Miscellaneous Information (Remove Patch) 1 ea TRDERM DAILY [facility] Last Admin: 10/21/19 09:09 Dose: 1 ea Nicotine (Habitrol) 21 mg TRDERM DAILY [facility] Last Admin: 10/21/19 09:09 Dose: 21 mg Witch Yolanda (Tucks) 1 pad TOP ASDIRECTED PRN PRN Reason: perineal pain Last Admin: 10/20/19 16:53 Dose: 1 container Discontinued Medications Calcium Carbonate/Glycine (Tums) 1,000 mg PO Q2H PRN PRN Reason: Indigestion Diphenhydramine HCl (Benadryl) 25 mg IVPUSH Q6H PRN PRN Reason: Itching Ephedrine Sulfate (Ephedrine Sulfate) 5 mg IVPUSH ASDIRECTED PRN PRN Reason: HYPOTENTSION Fentanyl (Sublimaze) 100 mcg EPIDUR Q3H PRN PRN Reason: Pain Last Admin: 10/20/19 12:44 Dose: 100 mcg Fentanyl/Bupivacaine HCl (Fentanyl/Bupivacaine/Ns 2 Mcg-0.125% 100 Ml) 100 ml EPIDUR CONTINUOUS PRN PRN Reason: Pain Last Admin: 10/20/19 12:44 Dose: 100 ml Clindamycin Phosphate 900 mg/ (Premix) 6 mls @ 5.66 mls/hr IV Q8H [facility] Last Admin: 10/20/19 10:08 Dose: Not Given Lactated Ringer's (Ringers, Lactated) 1,000 mls @ 100 mls/hr IV ASDIRECTED [facility] Last Admin: 10/20/19 13:50 Dose: 100 mls/hr Oxytocin/Lactated Ringer's (Pitocin In Lr 10 Units/1,000 Ml) 10 unit in 1,000 mls @ 12 mls/hr IV TITRATE FELA; Protocol Oxytocin/Lactated Ringer's (Pitocin In Lr 10 Units/1,000 Ml) 10 unit in 1,000 mls @ 500 mls/hr IV .CONTINUOUS FELA Last Admin: 10/20/19 15:03 Dose: 500 mls/hr Clindamycin Phosphate 900 mg/ (Premix) 50 mls @ 100 mls/hr IV Q8H [facility] Last Admin: 10/20/19 09:58 Dose: 100 mls/hr Lidocaine HCl (Xylocaine 1%) 20 ml INJECT ASDIRECTED ONE Stop: 10/20/19 08:19 Last Admin: 10/20/19 15:15 Dose: 10 ml Lidocaine HCl (Xylocaine 1%) Confirm Administered Dose 50 ml .ROUTE .STK-MED ONE Stop: 10/20/19 15:12 Last Admin: 10/21/19 01:30 Dose: Not Given Misoprostol (Cytotec) Confirm Administered Dose 50 mcg .ROUTE .STK-MED ONE Stop: 10/20/19 08:02 Last Admin: 10/20/19 08:04 Dose: 50 mcg Misoprostol (Cytotec) 50 mcg PO Q3H [facility] Last Admin: 10/20/19 11:27 Dose: Not Given Misoprostol (Cytotec) 50 mcg PO Q3H [facility] Last Admin: 10/20/19 11:28 Dose: Not Given Misoprostol (Cytotec) 50 mcg VAG Q3H [facility] Last Admin: 10/21/19 01:30 Dose: Not Given Nalbuphine HCl (Nubain) 10 mg IVPUSH Q2H PRN PRN Reason: Pain Ondansetron HCl (Zofran) 4 mg IVPUSH Q4H PRN PRN Reason: Nausea/Vomiting Sodium Chloride (Saline Flush) 10 ml FLUSH ASDIRECTED PRN PRN Reason: Keep Vein Open
[2019-10-21] MEDS: Witch Hazel Medicated Pads 40/Jar TOP PRN (15:16)
[2019-10-21] MEDS: Benzocaine/Menthol 20%-0.5% Spray 56 GM Canister TOP PRN (15:16)
[2019-10-21 15:30] VITALS: BP 110/86; PULSE 72
== END 2019-10-21 15:30 | disposition home or self-care (01) | DRG 560 ==
LOC: JD.OB 07:14 → OBSVTOIN 15:02 → JD.OB 15:03
PROVIDERS: ADMIT Obstetrics & Gynecology; ATTEND Obstetrics & Gynecology
PROC: 10E0XZZ Delivery of Products of Conception, External Approach (ICD-10-PCS; principal; 2019-10-20)
PROC: 0KQM0ZZ Repair Perineum Muscle, Open Approach (ICD-10-PCS; 2019-10-20)
PROC: 3E0P7VZ Introduction of Hormone into Female Reproductive, Via Natural or Artificial Opening (ICD-10-PCS; 2019-10-20)
PROC: 3E0R3BZ Introduction of Anesthetic Agent into Spinal Canal, Percutaneous Approach (ICD-10-PCS; 2019-10-20)
DX: O45.93 Premature separation of placenta, unspecified, third trimester (principal); Z3A.38 38 weeks gestation of pregnancy; Z37.0 Single live birth; O77.0 Labor and delivery complicated by meconium in amniotic fluid; O70.1 Second degree perineal laceration during delivery; O99.334 Smoking (tobacco) complicating childbirth; F17.210 Nicotine dependence, cigarettes, uncomplicated; O99.824 Streptococcus B carrier state complicating childbirth
CPT/HCPCS: 01967; 36415; 51702; 59025; 59409; 85025; 86592; 86850; 86900; 86901; A9270-GY; J2001; J2590; J3010; J3490; J7120

== ENCOUNTER 2020-05-14 06:29 | Day surgery (SDC) | payer BC ==
[~2020-05-14 06:29] MED LIST changes: +Lactated Ringers 1,000 ML IV SCH; +Lidocaine 1%/Sod Bicarbonate in NS 8.4% 1 ML Syringe IDERM PRN; -Lidocaine 2% with EPINEPHrine 1:200,000 20 ML SDV ONE; +Sodium Chloride 0.9% 10 ML Syringe FLUSH PRN
[2020-05-14] MEDS ORDERED: Lidocaine 1% 4 ML ONE (06:44)
[2020-05-14] MEDS ORDERED: fentaNYL 250 MCG/5 ML SDV ONE (06:44)
[2020-05-14] MEDS ORDERED: Propofol 200 MG/20 ML SDV ONE (06:44)
[2020-05-14] MEDS ORDERED: Rocuronium 50 MG/5 ML Vial ONE (06:44)
[2020-05-14] MEDS ORDERED: Ondansetron 4 MG/2 ML SDV ONE (06:44)
[2020-05-14] MEDS ORDERED: Midazolam 1 MG/ML 2 ML SDV ONE (06:44)
[2020-05-14] MEDS ORDERED: Ketamine 500 mg/10 ML MDV ONE (06:48)
[2020-05-14] MEDS ORDERED: Scopolamine 1.5 MG Transdermal Patch TOP SCH (06:57)
[2020-05-14] MEDS ORDERED: ceFAZolin 1 GM Vial ONE (06:58)
--- NOTE | 2020-05-14 07:11 | PCM.PREANE ---
Preanesthetic Assessment - Procedure Proposed Procedure: tvh - Anesthesia/Transfusion/Family Hx Anesthesia History: Prior Anesthesia Reaction Type of Anesthesia Reaction: Excessive Nausea/Vomiting Family History of Anesthesia Reaction: No Transfusion History: No Prior Transfusion(s) - Review of Systems General: Chills (always) Pulmonary: Cough (smoker) Cardiovascular: No Symptoms Gastrointestinal: Diarrhea (severe diarrhea since 8 pm last night) Neurological: No Symptoms Other: Reports: Sinus Problem, Depression, Anxiety - Physical Assessment NPO Status Date: 05/13/20 NPO Status Time: 23:50 Vital Signs: Last Vital Signs Temp 97.5 F 05/14/20 06:40 Pulse 58 L 05/14/20 06:40 Resp 16 05/14/20 06:40 BP 96/56 L 05/14/20 06:40 Pulse Ox 95 05/14/20 06:40 Height: 5 ft Weight: 51.71 kg ASA Class: 2 Mental Status: Alert & Oriented x3 Airway Class: Mallampati = 1 Dentition: Reports: Broken Tooth/Teeth, Caries Thyro-Mental Finger Breadths: 3 Mouth Opening Finger Breadths: 3 ROM/Head Extension: Full Lungs: Clear to Auscultation, Normal Respiratory Effort Cardiovascular: Regular Rate, Regular Rhythm - Lab Values: Laboratory Last Values WBC 9.24 K/mm3 (3.98-10.04) 05/14/20 06:51 RBC 5.28 M/mm3 (3.98-5.22) H 05/14/20 06:51 Hgb 17.1 gm/dl (11.2-15.7) H 05/14/20 06:51 Hct 49.9 % (34.1-44.9) H 05/14/20 06:51 MCV 94.5 fl (79.4-94.8) 05/14/20 06:51 MCH 32.4 pg (25.6-32.2) H 05/14/20 06:51 MCHC 34.3 g/dl (32.2-35.5) 05/14/20 06:51 RDW Std Deviation 49.8 fL (36.4-46.3) H 05/14/20 06:51 Plt Count 299 K/mm3 (182-369) D 05/14/20 06:51 MPV 9.3 fl (9.4-12.3) L 05/14/20 06:51 Neut % (Auto) 40.5 % (34.0-71.1) 05/14/20 06:51 Lymph % (Auto) 38.2 % (19.3-51.7) 05/14/20 06:51 [place] % (Auto) 9.1 % (4.7-12.5) 05/14/20 06:51 Eos % (Auto) 11.0 (0.7-5.8) H 05/14/20 06:51 Baso % (Auto) 0.9 % (0.1-1.2) 05/14/20 06:51 Neut # (Auto) 3.74 K/mm3 (1.56-6.13) 05/14/20 06:51 Lymph # (Auto) 3.53 K/mm3 (1.18-3.74) 05/14/20 06:51 [place] # (Auto) 0.84 K/mm3 (0.24-0.36) H 05/14/20 06:51 Eos # (Auto) 1.02 K/mm3 (0.04-0.36) H 05/14/20 06:51 Baso # (Auto) 0.08 K/mm3 (0.01-0.08) 05/14/20 06:51 - Allergies Allergies/Adverse Reactions: Allergies Allergy/AdvReac Type Severity Reaction Status Date / Time amoxicillin [Amoxicillin] Allergy Cannot Verified 05/13/20 13:39 Remember Penicillins Allergy Cannot Verified 05/13/20 13:39 Remember - Blood Blood Available: No - Acknowledgements Anesthesia Type Planned: General Anesthesia Pt an Appropriate Candidate for the Planned Anesthesia: Yes Alternatives and Risks of Anesthesia Discussed w Pt/Guardian: Yes Pt/Guardian Understands and Agrees with Anesthesia Plan: Yes PreAnesthesia Questionnaire HEENT History: Reports: Other (See Below) Other HEENT History: nasal surgery Cardiovascular History: Reports: None Respiratory History: Reports: Asthma (no meds), Other (See Below) Other Respiratory History: chronic cough Gastrointestinal History: Reports: GERD (good now), Irritable Bowel Syndrome Genitourinary History: Reports: [employer]ER History: Reports: Other OB/BYN History: menorrhagia, colposcopy, LGSIL Musculoskeletal History: Reports: Other (See Below) Other Musculoskeletal History: muscle cramps, right thumb tendon reconstruction Neurological History: Reports: None Psychiatric History: Reports: Anxiety, Bipolar, Depression Other Psychiatric History: ETOH abuse Endocrine/Metabolic History: Reports: None Hematologic History: Reports: Anemia Immunologic History: Reports: None Oncologic (Cancer) History: Reports: None Dermatologic History: Reports: Other (See Below) Other Dermatologic History: dog bite - Infectious Disease History Infectious Disease History: Reports: MRSA - Past Surgical History Head Surgeries/Procedures: Reports: None HEENT Surgical History: Reports: None Cardiovascular Surgical History: Reports: None Respiratory Surgical History: Reports: None GI Surgical History: Reports: None Endocrine Surgical History: Reports: None Neurological Surgical History: Reports: None Musculoskeletal Surgical History: Reports: Other (See Below) Other Musculoskeletal Surgeries/Procedures:: "Had surgery on a few thumbs and ankles" Oncologic Surgical History: Reports: None - SUBSTANCE USE Tobacco Use Status *Q: Current Every Day Tobacco User Tobacco Use Within Last Twelve Months: Cigarettes Second Hand Smoke Exposure: Yes Days Per Week of Alcohol Use: 1 Recreational Drug Use History: No - HOME MEDS Home Medications: Home Meds Acetaminophen/Diphenhydramine [Tylenol Pm Ex-Strength Caplet] 2 tab PO BEDTIME PRN 05/13/20 [History] Ibuprofen 200 - 600 mg PO Q6H PRN 05/13/20 [History] Sertraline [Zoloft] 100 mg PO DAILY 05/13/20 [History] hydrOXYzine HCL [hydrOXYzine] 25 - 50 mg PO Q6H PRN 05/13/20 [History] - CURRENT (IN HOUSE) MEDS Current Meds: Current Medications Lactated Ringer's (Ringers, Lactated) 1,000 mls @ 125 mls/hr IV ASDIRECTED FELA Stop: 05/14/20 23:00 Last Admin: 05/14/20 06:50 Dose: 125 mls/hr Documented by: Lidocaine/Sodium Bicarbonate (Buffered Lidocaine 1% In Ns 8.4%) 0.25 ml IDERM ONETIME PRN PRN Reason: Prior to IV Start Stop: 05/14/20 18:00 Miscellaneous Information (Remove Patch) 1 ea TRDERM Q72H FELA Scopolamine (Transderm-Scop) 1.5 mg TOP ONETIME FELA Last Admin: 05/14/20 07:03 Dose: 1.5 mg Documented by: Sodium Chloride (Saline Flush) 10 ml FLUSH ASDIRECTED PRN PRN Reason: Keep Vein Open Stop: 05/14/20 18:00 Discontinued Medications Cefazolin Sodium (Ancef) Confirm Administered Dose 2 gm .ROUTE .STK-MED ONE Stop: 05/14/20 06:59 Fentanyl (Sublimaze) Confirm Administered Dose 250 mcg .ROUTE .STK-MED ONE Stop: 05/14/20 06:45 Lidocaine HCl (Xylocaine-Mpf 1%) Confirm Administered Dose 4 mls @ as directed .ROUTE .STK-MED ONE Stop: 05/14/20 06:45 Ketamine HCl (Ketalar) Confirm Administered Dose 500 mg .ROUTE .STK-MED ONE Stop: 05/14/20 06:49 Midazolam HCl (Versed 1 Mg/Ml) Confirm Administered Dose 2 mg .ROUTE .STK-MED ONE Stop: 05/14/20 06:45 Ondansetron HCl (Zofran) Confirm Administered Dose 4 mg .ROUTE .STK-MED ONE Stop: 05/14/20 06:45 Propofol (Diprivan 20 Ml) Confirm Administered Dose 200 mg .ROUTE .STK-MED ONE Stop: 05/14/20 06:45 Rocuronium [place] (Zemuron) Confirm Administered Dose 50 mg .ROUTE .STK-MED ONE Stop: 05/14/20 06:45
[2020-05-14] MEDS ORDERED: Dexamethasone 4 MG/ML 5 ML MDV ONE (07:15)
[2020-05-14] MEDS ORDERED: Lidocaine 1% with EPINEPHrine 1:100,000 20 ML MDV ONE (07:32)
[2020-05-14] MEDS ORDERED: Sodium Chloride 0.9% 50 ML SDV ONE ×2 (07:32→07:35)
[2020-05-14] MEDS ORDERED: HYDROmorphone 0.5 MG/0.5 ML Syringe IVPUSH PRN (08:12)
[2020-05-14] MEDS ORDERED: fentaNYL 100 MCG/2 ML SDV IVPUSH PRN (08:12)
[2020-05-14] MEDS ORDERED: Ondansetron 4 MG/2 ML SDV IVPUSH PRN (08:12)
[2020-05-14] MEDS ORDERED: HYDROmorphone 0.5 MG/0.5 ML Syringe ONE (08:28)
[2020-05-14] MEDS ORDERED: Lactated Ringers 1,000 ML ONE (08:31)
[2020-05-14] MEDS ORDERED: Ketorolac 30 MG/ML SDV ONE (08:42)
--- NOTE | 2020-05-14 09:10 | PCM.OPNOTE ---
- General Post-Op/Procedure Note Date of Surgery/Procedure: 05/14/20 Operative Procedure(s): total vaginal hysterectomy bilateral salpingectomy Pre Op Diagnosis: Menorrhagia, low-grade squamous intraepithelial lesion cervix Post-Op Diagnosis: Same Primary Surgeon: Obi Contreras Secondary Surgeon: Donovan Contreras Anesthesia Provider: Florian Alas Keg Inspector: Colleen Lyn I (PAS) Reason Keg Inspector Was Necessary: assist in surgery, decrease co-morbidity and mortality Role of Keg Inspector: assist in surgery, decrease co-morbidity and mortality Fluid Replacement, Intraop: 1,000 EBL in mLs: 50 Drain/Tube Comments:: none Complications: None Condition: Good Free Text/Narrative:: Patient was transported to operating room #4 in medical office building and placed under general anesthesia with endotracheal intubation. Placed in the low dorsolithotomy position. Examination under anesthesia revealed anterior uterus not enlarged no adnexal masses. Timeout performed. SCDs in place and functioning prior to surgery. Ancef 2 g given intravenously without complications (history of penicillin allergy) patient was prepared and draped in a sterile fashion. Injecting 20 mL of 0.25% lidocaine with epinephrine and multiple confluent areas around the cervix the cervix was circumscribed and posterior colpotomy performed without difficulty. Anterior colpotomy was then performed without difficulty. Utilizing the Enseal apparatus the pedicles on the left side were grasped sealed and incised and proceeding cephalad additional bite taken for the uterine vessels activation of Enseal and incising. Tension turned to the right side same procedure carried out on that side and then the triple pedicle was crossclamped activated Enseal and incised. Same procedure carried out on the left side the uterus removed intact with the cervix. The left and right fallopian tubes were then removed by utilizing Enseal mesosalpinx crossclamping activating and incising hemostasis was adequate both sides both ovaries appeared normal. Sponge needle pack instrument count correct x2 in the posterior cuff was closed with running locking suture of 0 Monocryl anterior left closed with running locking suture of 0 Monocryl. And one [id number] suture taken in the left fornix of the vagina to allow hemostasis at the angle of the incisions. No blood transfusions were required patient tolerated procedure well supported to anesthesia care unit. Received Toradol at 0845 hrs. Talked with patient significant other "Peterson" patient is answered to voiced satisfaction.
--- NOTE | 2020-05-14 09:11 | PCM.POSTAN ---
POST ANESTHESIA ASSESSMENT - MENTAL STATUS Mental Status: Alert, Oriented - VITAL SIGNS Vital Signs: Last Vital Signs Temp 97.5 F 05/14/20 06:40 Pulse 58 L 05/14/20 06:40 Resp 16 05/14/20 06:40 BP 96/56 L 05/14/20 06:40 Pulse Ox 95 05/14/20 06:40 - RESPIRATORY Respiratory Status: Respiratory Rate WNL, Airway Patent, O2 Saturation Stable, Supplemental Oxygen - CARDIOVASCULAR CV Status: Pulse Rate WNL, Blood Pressure Stable - GASTROINTESTINAL GI Status: No Symptoms - POST OP HYDRATION Hydration Status: Adequate & Stable
[2020-05-14] MEDS ORDERED: oxyCODONE 5 MG Tab PO SCH (10:00)
--- NOTE | 2020-05-14 12:05 | PCM48HPAN ---
Post Anesthesia Note - EVALUATION WITHIN 48HRS OF ANESTHETIC Vital Signs in Normal Range: Yes Patient Participated in Evaluation: Yes Respiratory Function Stable: Yes Airway Patent: Yes Cardiovascular Function Stable: Yes Hydration Status Stable: Yes Pain Control Satisfactory: Yes Nausea and Vomiting Control Satisfactory: Yes Mental Status Recovered: Yes Vital Signs: Last Vital Signs Temp 97.2 F 05/14/20 09:50 Pulse 76 05/14/20 11:35 Resp 17 05/14/20 11:35 BP 100/63 05/14/20 11:05 Pulse Ox 97 05/14/20 11:35 - COMMENTS/OBSERVATIONS Free Text/Narrative:: rests- little pain and no nausea
[2020-05-14 15:05] VITALS: BP 101/68; PULSE 69
== END 2020-05-14 15:30 | disposition home or self-care (01) ==
LOC: JD.SDS 06:29
PROVIDERS: ATTEND Obstetrics & Gynecology
DX: R87.612 Low grade squamous intraepithelial lesion on cytologic smear of cervix (LGSIL) (principal); N73.6 Female pelvic peritoneal adhesions (postinfective); N83.8 Other noninflammatory disorders of ovary, fallopian tube and broad ligament; F41.9 Anxiety disorder, unspecified; F32.9 Major depressive disorder, single episode, unspecified; F17.210 Nicotine dependence, cigarettes, uncomplicated; Z88.0 Allergy status to penicillin; Z79.899 Other long term (current) drug therapy; Z98.890 Other specified postprocedural states
CPT/HCPCS: 36415; 58262; 84702; 85025; 86850; 86900; 86901; A9270; J0690; J1100; J1170; J1885; J2001; J2250; J2405; J2704; J2710; J3010; J7120

== ENCOUNTER 2021-02-09 20:36 | Emergency (ER) | payer BC ==
[2021-02-09 20:49] VITALS: BP 118/76; PULSE 90
[2021-02-09] MEDS ORDERED: Sodium Chloride 0.9% 10 ML Syringe FLUSH PRN (21:08)
--- NOTE | 2021-02-09 21:27 | EDM.PDOC ---
ED HPI GENERAL MEDICAL PROBLEM - General Chief Complaint: Abdominal Pain Stated Complaint: RT SIDE PAIN Time Seen by Provider: 02/09/21 20:46 Source of Information: Reports: Patient, RN Notes Reviewed - History of Present Illness INITIAL COMMENTS - FREE TEXT/NARRATIVE: 40 yr old female that had sudden onset of R upper abd pain radiating to R mid abd about 1/2 hr [employer]. Has had 3 very intense sharp episodes that than have completely let up. Pain was a 10 on arrival, now gone. Came on shortly after eating a burrito and "olays". Had been feeling well with good appetite prior to that. Mild nausea but no vomiting. Right Abdomen Pain Score (Numeric/FACES): 10 - Related Data Allergies Allergy/AdvReac Type Severity Reaction Status Date / Time amoxicillin [Amoxicillin] Allergy Cannot Verified 02/09/21 20:49 Remember Penicillins Allergy Cannot Verified 02/09/21 20:49 Remember Home Meds: Home Meds Sertraline [Zoloft] 100 mg PO DAILY 05/13/20 [History] hydrOXYzine HCL [hydrOXYzine] 25 - 50 mg PO Q6H PRN 05/13/20 [History] Past Medical History HEENT History: Reports: Other (See Below) Other HEENT History: nasal surgery Cardiovascular History: Reports: None Respiratory History: Reports: Other (See Below) Other Respiratory History: chronic cough Gastrointestinal History: Reports: GERD Genitourinary History: Reports: STD HUMAN RESOURCES HR GENERALIST History: Reports: Other HUMAN RESOURCES HR GENERALIST History: 37 week demise Musculoskeletal History: Reports: Other (See Below) Other Musculoskeletal History: muscle cramps, right thumb tendon reconstruction Neurological History: Reports: None Psychiatric History: Reports: Anxiety, Depression, Panic Attack Other Psychiatric History: stopped taking anti depressants during preg. Endocrine/Metabolic History: Reports: None Hematologic History: Reports: Anemia Immunologic History: Reports: None Oncologic (Cancer) History: Reports: None Dermatologic History: Reports: Other (See Below) Other Dermatologic History: dog bite - Infectious Disease History Infectious Disease History: Reports: MRSA - Past Surgical History Cardiovascular Surgical History: Reports: None Endocrine Surgical History: Reports: None Musculoskeletal Surgical History: Reports: Other (See Below) Other Musculoskeletal Surgeries/Procedures:: "Had surgery on a few thumbs and ankles" Social & Family History - Family History Family Medical History: No Pertinent Family History - Tobacco Use Tobacco Use Status *Q: Current Every Day Tobacco User Years of Tobacco use: 35 Packs/Tins Daily: 2 - Caffeine Use Caffeine Use: Reports: Energy Drinks Other Caffeine Use: at least one daily - Recreational Drug Use Recreational Drug Use: No ED ROS GENERAL - Review of Systems Review Of Systems: See Below Constitutional: Denies: Fever, Chills, Diaphoresis HEENT: Reports: No Symptoms Respiratory: Denies: Shortness of Breath Cardiovascular: Denies: Chest Pain GI/Abdominal: Reports: Abdominal Pain, Nausea. Denies: Diarrhea, Vomiting Musculoskeletal: Denies: Back Pain Skin: Reports: No Symptoms Neurological: Reports: No Symptoms ED EXAM,LOWER BACK PAIN/INJURY - Physical Exam Exam: See Below General Appearance: Alert, No Apparent Distress Throat/Mouth: Normal Inspection Head: Atraumatic Respiratory/Chest: No Respiratory Distress, Lungs Clear, Normal Breath Sounds GI/Abdominal: Soft, Non-Tender. No: Guarding, Rebound Back Exam: No: CVA Tenderness (L), CVA Tenderness (R) Extremities: Normal Inspection Neurological: Alert, No Motor/Sensory Deficits Skin Exam: Warm, Dry, Normal Color Course - Vital Signs Last Recorded V/S: Last Vital Signs Temp 97.5 F 02/09/21 20:46 Pulse 90 02/09/21 20:46 Resp 18 02/09/21 20:46 BP 118/76 02/09/21 20:46 Pulse Ox 96 02/09/21 20:46 - Orders/Labs/Meds Orders: Active Orders 24 hr Category Date Time Status Peripheral IV Care [RC] . DIRECTED Care 02/09/21 21:09 Active Sodium Chloride 0.9% [Saline Flush] Med 02/09/21 21:08 Active 10 ml FLUSH ASDIRECTED PRN Peripheral IV Insertion Adult [OM.PC] Stat Oth 02/09/21 21:09 Ordered Medication Orders Sodium Chloride (Sodium Chloride 0.9% 10 Ml Syringe) 10 ml FLUSH ASDIRECTED PRN PRN Reason: Keep Vein Open Last Admin: 02/09/21 22:00 Dose: 10 ml Documented by: BARBARA Labs: Laboratory Tests 02/09/21 02/09/21 Range/Units 21:15 21:15 WBC 13.30 H (3.98-10.04) K/mm3 RBC 5.51 H (3.98-5.22) M/mm3 Hgb 17.7 H (11.2-15.7) gm/dl Hct 50.9 H (34.1-44.9) % MCV 92.4 (79.4-94.8) fl MCH 32.1 (25.6-32.2) pg MCHC 34.8 (32.2-35.5) g/dl RDW Std Deviation 47.6 H (36.4-46.3) fL Plt Count 286 (182-369) K/mm3 MPV 9.4 (9.4-12.3) fl Neut % (Auto) 55.8 (34.0-71.1) % Lymph % (Auto) 31.3 (19.3-51.7) % [place] % (Auto) 7.4 (4.7-12.5) % Eos % (Auto) 4.8 (0.7-5.8) Baso % (Auto) 0.5 (0.1-1.2) % Neut # (Auto) 7.41 H (1.56-6.13) K/mm3 Lymph # (Auto) 4.16 H (1.18-3.74) K/mm3 [place] # (Auto) 0.99 H (0.24-0.36) K/mm3 Eos # (Auto) 0.64 H (0.04-0.36) K/mm3 Baso # (Auto) 0.07 (0.01-0.08) K/mm3 Manual Slide Review Sodium 143 (136-145) mEq/L Potassium 3.3 L (3.5-5.1) mEq/L Chloride 107 (98-107) mEq/L Carbon Dioxide 29 (21-32) mEq/L Anion Gap 10.3 (5-15) BUN 5 L (7-18) mg/dL Creatinine 0.7 (0.55-1.02) mg/dL Est Cr Clr Drug Dosing 75.20 mL/min Estimated GFR (MDRD) > 60 (>60) mL/min BUN/Creatinine Ratio 7.1 L (14-18) Glucose 148 H (70-99) mg/dL Calcium 8.6 (8.5-10.1) mg/dL Total Bilirubin 0.3 (0.2-1.0) mg/dL AST 17 (15-37) U/L ALT 13 L (14-59) U/L Alkaline Phosphatase 85 (46-116) U/L C-Reactive Protein 0.5 (<1.0) mg/dL Total Protein 7.3 (6.4-8.2) g/dl Albumin 3.5 (3.4-5.0) g/dl Globulin 3.8 gm/dL Albumin/Globulin Ratio 0.9 L (1-2) Meds: Medications Generic Name Dose Route Start Last Admin Trade Name Freq PRN Reason Stop Dose Admin Sodium Chloride 10 ml 02/09/21 21:08 02/09/21 22:00 Sodium Chloride 0.9% 10 Ml Syringe FLUSH 10 ml ASDIRECTED PRN Administration Keep Vein Open - Re-Assessments/Exams Free Text/Narrative Re-Assessment/Exam: 02/09/21 22:38 Labs are good, no further pain since arrival about 2 hrs ago. Pt is noted to be quite drowsy now. States she took an hydroxazine shortly before arrival. Discharge instr. as documented. Departure - Departure Time of Disposition: 22:36 Disposition: Home, Self-Care 01 Condition: Fair Clinical Impression: Abdominal pain Qualifiers: Abdominal location: generalized Qualified Code(s): R10.84 - Generalized abdominal pain - Discharge Information Referrals: Elizabeth Peter PA-C [Primary Care Provider] - Forms: ED Department Discharge Additional Instructions: Clear liquids until mid morning. Than careful bland diet as tolerated. Return to ED as needed if symptoms worsening in any way or pain localizing and worsening R lower abd as discussed. Sepsis Event Note (ED) - Evaluation Sepsis Screening Result: Possible Sepsis Risk - Focused Exam Vital Signs: Vital Signs Temp Pulse Resp BP Pulse Ox 02/09/21 20:46 97.5 F 90 18 118/76 96 - My Orders Last 24 Hours: My Active Orders 02/09/21 21:08 Sodium Chloride 0.9% [Saline Flush] 10 ml FLUSH ASDIRECTED PRN 02/09/21 21:09 Peripheral IV Care [RC] . DIRECTED Peripheral IV Insertion Adult [OM.PC] Stat - Assessment/Plan Last 24 Hours: My Active Orders 02/09/21 21:08 Sodium Chloride 0.9% [Saline Flush] 10 ml FLUSH ASDIRECTED PRN 02/09/21 21:09 Peripheral IV Care [RC] . DIRECTED Peripheral IV Insertion Adult [OM.PC] Stat
== END 2021-02-09 22:45 | disposition home or self-care (01) ==
LOC: JD.ED 20:36
DX: R10.84 Generalized abdominal pain (principal); Z88.0 Allergy status to penicillin; Z72.0 Tobacco use
CPT/HCPCS: 36415; 80053; 85025; 86140; 99283; 99284